=== PATIENT | female | born 1990 | race Caucasian/White ===

== ENCOUNTER → 2019-02-20 13:24 | Outpatient (CLI) | payer OTHER, SELFPAY ==
[2019-02-26 13:43] LABS: AFP, Serum 43.8 ng/mL; Calc Gestational Age 18.7; Cigarette Smoker NOT GIVEN; Donated Egg N; Donor Egg Age NOT GIVEN; Inhibin A, Dimeric 163 pg/mL; Maternal Weight 193 lbs; Number of Fetuses NOT GIVEN; Previous Pregnancy Down Syndro N; hCG, MoM 0.53; hCG, Serum 10.2 IU/mL
== END ==
PROVIDERS: PCP Nurse Practitioner Family; Visit Provider Family Medicine
DX: Z34.82 Encounter for supervision of other normal pregnancy, second trimester (principal); Z3A.16 16 weeks gestation of pregnancy
CPT/HCPCS: 36415; 82105; 82677; 84702; 86336

== ENCOUNTER → 2019-03-16 07:48 | Outpatient (CLI) | payer OTHER, SELFPAY ==
--- NOTE | 2019-03-16 07:50 | DI.US.S_ITS ---
PROCEDURE: US OB >= 14 WEEKS FETUS INDICATIONS: anatomy screening OUTSIDE/PRIOR DATING DATA: Last menstrual period (LMP): 10/12/18. LMP-based estimated date of delivery (MAUREEN): 07/19/19. First dating scan (date and location): 03/16/19. Estimated date of delivery (MAUREEN) from first dating scan: 07/20/19. TECHNIQUE: Real-time scanning was performed of the fetus, with image documentation and biometric measurements. Endovaginal scanning: Deferred COMPARISON: None. FINDINGS: General: A single living intrauterine gestation is present. Presentation: Vertex. Placenta: Placental position is posterior, without previa. Amniotic fluid index: 11.3 cm, normal range is 5-24 cm. heart rate: 152 beats per minute. Maternal cervical canal: 3.6 cm long. Normal lower limit is 2.5 cm. biometrics: Biparietal diameter: 5.3 cm, 22 weeks, zero days plus or -12 days Head circumference: 19.6 cm, 21 weeks, 5 days plus or -10 days Abdominal circumference: 18.2 cm, 23 weeks zero days plus or -14 days Femur length: 3.7 cm, 21 weeks, 5 days plus -13 days Estimated gestational age from initial scan: not applicable. Composite gestational age from present scan: 22 weeks, zero days Estimated weight and percentile: 500 g plus -74 g, 57th percentile Measurement variability for biometric dating: +/- 7 days from 14 weeks to 15 weeks 6 days gestation, +/- 10 days from 16 weeks to 21 weeks 6 days gestation, +/- 2 weeks from 22 weeks to 27 weeks 6 days gestation, +/- 3 weeks for 28 weeks gestation or later. weight reference: 4500 g or EFW >90/95% is considered macrosomia or large for gestational age. EFW <10% is small for gestational age. EFW 5% or less is considered intra-uterine growth restriction. Anatomic survey: Neuro: Ventricles are non-dilated at less than 10 mm. Cisterna magna is normal at 3-11 mm. Cerebellum is normal in size and morphology. Nuchal skin fold: Normal at less than 6 mm between 14-21 weeks gestational age. Face: Nose and lips, facial profile are normal. Spine: No evidence for spina bifida. Heart: 4-chambered heart is present, with normal ventricular outflow tracts. Diaphragm: Diaphragm is intact. Stomach: Left-sided stomach is present. Kidneys: No hydronephrosis. Normal is less than 5 mm in 2nd trimester, less than 7 mm in 3rd trimester. Cord: 3-vessel cord has orthotopic insertion. Bladder: Normal in size. Extremities: All 4 extremities identified. IMPRESSION: 1. Single living intrauterine with a composite gestational age by today's measurements of 22 weeks, zero days, in good agreement with the clinically assigned gestational age. 2. Symmetric growth and normal anatomy. Dictated by: Melissa Yu M.D. on 03/16/2019 at 9:55 Approved by: Melissa Yu M.D. on 03/16/2019 at 10:01
== END ==
PROVIDERS: PCP Nurse Practitioner Family; Visit Provider Family Medicine
DX: Z36.89 Encounter for other specified antenatal screening (principal); Z3A.22 22 weeks gestation of pregnancy
CPT/HCPCS: 76811

== ENCOUNTER → 2019-04-25 08:17 | Outpatient (CLI) | payer OTHER, SELFPAY ==
[2019-04-25 10:37] LABS: Hematocrit 31.7 % (36-46); Hemoglobin 10.9 g/dL (12.0-16.0)
[2019-04-25 11:00] LABS: GTT (PREG) 1 Hour PP 50gm Dose 153 mg/dL (76-139)
== END ==
PROVIDERS: PCP Nurse Practitioner Family; Visit Provider Family Medicine
DX: Z34.02 Encounter for supervision of normal first pregnancy, second trimester (principal); Z3A.26 26 weeks gestation of pregnancy
CPT/HCPCS: 82950; 85014; 85018

== ENCOUNTER → 2019-04-30 07:51 | Outpatient (CLI) | payer OTHER, SELFPAY ==
[2019-04-30 10:11] LABS: Glucose Fasting Gestational 84 mg/dL (76-95)
[2019-04-30 10:43] LABS: Glucose 1 Hour Gest 179 mg/dL (76-180)
[2019-04-30 11:10] LABS: Glucose Tol Interp,Gestational INTERPRETATION
[2019-04-30 11:22] LABS: Glucose 2 Hour Gest 158 mg/dL (76-155)
[2019-04-30 12:33] LABS: Glucose 3 Hour Gest 138 mg/dL (76-140)
== END ==
PROVIDERS: PCP Nurse Practitioner Family; Visit Provider Family Medicine
DX: Z34.90 Encounter for supervision of normal pregnancy, unspecified, unspecified trimester (principal); R73.01 Impaired fasting glucose
CPT/HCPCS: 36415; 82951; 82952

== ENCOUNTER → 2019-06-26 11:08 | Outpatient (CLI) | payer OTHER, SELFPAY ==
[2019-06-27 10:04] LABS: Strep Grp B PCR NEG for Grp B Strep
== END ==
PROVIDERS: PCP Nurse Practitioner Family; Visit Provider Family Medicine
DX: Z3A.36 36 weeks gestation of pregnancy (principal)
CPT/HCPCS: 87653

== ENCOUNTER → 2019-06-29 08:58 | Outpatient (CLI) | payer OTHER, SELFPAY ==
--- NOTE | 2019-06-29 09:00 | DI.US.S_ITS ---
PROCEDURE: US OB LIMITED INDICATIONS: LARGE FOR GESTATIONAL AGE OUTSIDE/PRIOR DATING DATA: Last menstrual period (LMP): 10/12/18. LMP-based estimated date of delivery (MAUREEN): 07/19/19. First dating scan (date and location): 03/16/19. Estimated date of delivery (MAUREEN) from first dating scan: 07/20/19.. TECHNIQUE: Real-time scanning was performed of the fetus, with image documentation and biometric measurements. Endovaginal scanning: Vertex COMPARISON: [facility], OB >= 14 WEEKS FETUS, 03/16/2019, 8:10. FINDINGS: General: A single living intrauterine gestation is present. Presentation: Vertex. Placenta: Placental position is posterior Amniotic fluid index: 21.9 cm, normal range is 5-24 cm. heart rate: 149 beats per minute. Maternal cervical canal: Not well-seen. biometrics: Biparietal diameter: 36 weeks 4 days Head circumference: 37 weeks 2 days Abdominal circumference: 39 weeks 4 days Femur length: 36 weeks Estimated gestational age from initial scan: 37 weeks Composite gestational age from present scan: 37 weeks 3 days Estimated weight and percentile: 3406 g; 84 percentile Measurement variability for biometric dating: +/- 7 days from 14 weeks to 15 weeks 6 days gestation, +/- 10 days from 16 weeks to 21 weeks 6 days gestation, +/- 2 weeks from 22 weeks to 27 weeks 6 days gestation, +/- 3 weeks for 28 weeks gestation or later. weight reference: 4500 g or EFW >90/95% is considered macrosomia or large for gestational age. EFW <10% is small for gestational age. EFW 5% or less is considered intra-uterine growth restriction. Other: Not applicable. IMPRESSION: 1. Single living IUP redemonstrated and interval growth is normal. Dictated by: Jhon Bess [facility] Interpreted: Mj Ruby MD on 06/29/2019 at 10:38 Approved by: Mj Ruby M.D. on 06/29/2019 at 15:10
== END ==
PROVIDERS: PCP Nurse Practitioner Family; Visit Provider Family Medicine
DX: O36.63X0 Maternal care for excessive fetal growth, third trimester, not applicable or unspecified (principal); Z3A.37 37 weeks gestation of pregnancy
CPT/HCPCS: 76815

== ENCOUNTER → 2019-07-21 10:15 | Outpatient (CLI) | payer OTHER, SELFPAY ==
--- NOTE | 2019-07-21 10:17 | DI.US.S_ITS ---
PROCEDURE: US OB LIMITED INDICATIONS: GROWTH, MICKEY OUTSIDE/PRIOR DATING DATA: Last menstrual period (LMP): 10/12/18. LMP-based estimated date of delivery (MAUREEN): 07/19/19. First dating scan (date and location): 03/16/19. Estimated date of delivery (MAUREEN) from first dating scan: 07/20/19.. TECHNIQUE: Real-time scanning was performed of the fetus, with image documentation and biometric measurements. Endovaginal scanning: No COMPARISON: [facility], OB LIMITED, 06/29/2019, 9:35. FINDINGS: General: A single living intrauterine gestation is present. Presentation: Vertex. Placenta: Placental position is posterior, without previa. Amniotic fluid index: 11.2 cm, normal range is 5-24 cm. heart rate: 155 beats per minute. Maternal cervical canal: Not well-seen. biometrics: Biparietal diameter: 39 weeks 4 days Head circumference: 40 weeks 1 day Abdominal circumference: 40 weeks 5 days Femur length: 38 weeks 6 days Estimated gestational age from initial scan: 40 weeks 1 day Composite gestational age from present scan: 39 weeks 5 days Estimated weight and percentile: 3991 g; 77% of Measurement variability for biometric dating: +/- 7 days from 14 weeks to 15 weeks 6 days gestation, +/- 10 days from 16 weeks to 21 weeks 6 days gestation, +/- 2 weeks from 22 weeks to 27 weeks 6 days gestation, +/- 3 weeks for 28 weeks gestation or later. weight reference: 4500 g or EFW >90/95% is considered macrosomia or large for gestational age. EFW <10% is small for gestational age. EFW 5% or less is considered intra-uterine growth restriction. Other: Bilateral hydroceles noted. IMPRESSION: Single living IUP redemonstrated and interval growth is normal. Dictated by: John Bess [facility] Interpreted: Peggy Obrien MD on 07/21/2019 at 16:07 Approved by: Peggy Obrien M.D. on 07/21/2019 at 16:17
== END ==
PROVIDERS: PCP Nurse Practitioner Family; Visit Provider Family Medicine
DX: O36.63X0 Maternal care for excessive fetal growth, third trimester, not applicable or unspecified (principal); Z3A.39 39 weeks gestation of pregnancy
CPT/HCPCS: 76815

== ENCOUNTER 2019-07-23 18:05 | Inpatient (IN) | payer OTHER, SELFPAY ==
[2019-07-23] MEDS: DINOPROSTONE VAG (CERVIDIL) 10 MG VAG (19:30)
[2019-07-23 20:10] VITALS: BP 130/79
[2019-07-23 20:55] LABS: Add Manual Diff / Slide Review NO; Basophils Absolute Auto 0 /uL (0-100); Basophils Percent Auto 0.4 % (0-2); Eosinophils Absolute Auto 0 /uL (0-450); Eosinophils Percent Auto 0.5 % (2-4); Hematocrit 33.7 % (36-46); Hemoglobin 11.2 g/dL (12.0-16.0); Lymphocytes Absolute Auto 2200 /uL (1100-4500); Lymphocytes Percent Auto 24.1 % (25-40); Mean Corpuscular HGB Conc 33.3 % (30-36); Mean Corpuscular Hemoglobin 29.2 PG (26-34); Mean Corpuscular Volume 87.6 fL (80-100); Monocytes Absolute Auto 1300 /uL (0-900); Monocytes Percent Auto 14.4 % (3-14); Neutrophils Absolute Auto 5600 /uL (1500-7000); Neutrophils Percent Auto 60.6 % (50-75); Platelet Count 137 X10^3/uL (150-400); Red Blood Cell Count 3.85 X10^6/uL (4.0-5.2); Red Cell Distribution Width 14.2 % (11.6-14.8); White Blood Cell Count 9.2 X10^3/uL (4.5-11.0)
[2019-07-23] MEDS: ZOLPIDEM 5 MG TABLET PO (21:10)
[2019-07-24] MEDS: OXYTOCIN PREMIX 30 UNIT/500 ML PLAST..BAG IV (06:30)
[2019-07-24] MEDS: LACTATED RINGERS 1,000 ML 100 ML IV ×5 (06:30→23:10)
--- NOTE | 2019-07-24 06:44 | PM.OBHP.1 ---
OB HPI Date/Time Date of admission: 07/24/19 Date Patient Seen: 07/24/19 Time Patient Seen: 07:02 History of Present Condition Chief complaint: Obs : 1 Para: 0 Estimated Date of Delivery: 07/19/19 Estimated Gestational Age (weeks): 40w5d Narrative: Ana Maria Rao is a 28 year old with MAUREEN of 07/19/19. has been uncomplicated. She did not pass the 1 hour GTT however passed the 3 hour and has been watching her weight gain the rest of the . Last US on 07/21/19 gave EFW of 3991 g (77%). She came in last night for Cervidil ripening. Cervidil fell out at 5:20 AM and pitocin started at 6:20 AM. SVE reportedly 3/-2 and patient was very sensitive on exam. Indications Indication for induction OB: post dates History of Present care: good care, initiated at week # (15), number of visits (13) and pounds weight gain (36) Dating criteria: LMP confirmed by 1st trimester US Ultrasounds: normal mid trimester US Obstetrical complications: none Medical complications: none Preadmission Labs Blood type: A (+) positive -: Antibody screen: negative, GBS status: negative, HBsAG: negative, HIV: negative and RPR/VDLR: negative -: Chlamydia screen: not detected and Gonorrhea screen: not detected -: Rubella: immune HCT: 38.6 PAP: Abnormal (ASCUS +HPV, neg colpo) Quad screen: Normal 1 hr GTT: 153 3 hr GTT: 1 hr (179), 2 hr (158) and 3 hr (138) Fasting blood glucose: 84 Evaluation Evaluation Baseline heart rate: 130 Variability: Moderate (11-25) monitor accelerations: Present monitor decelerations: Variable (one variable) Uterine Contraction Intensity: Mild Category of Tracing: II Cervical dilation (cm): 3 Cervical effacement (%): 90 station: -2 Laboratory results: Laboratory Tests 07/23/19 07/23/19 20:40 20:40 WBC 9.2 RBC 3.85 L Hgb 11.2 L Hct 33.7 L MCV 87.6 MCH 29.2 MCHC 33.3 RDW 14.2 Plt Count 137 L Neut % (Auto) 60.6 Lymph % (Auto) 24.1 L Fergus % (Auto) 14.4 H Eos % (Auto) 0.5 L Baso % (Auto) 0.4 Neut # (Auto) 5600 Lymph # (Auto) 2200 Fergus # (Auto) 1300 H Eos # (Auto) 0 Baso # (Auto) 0 Blood Type A Positive Antibody Screen Negative [facility] Medical History Abnormal Pap smear of cervix (Resolved) Anxiety and depression (Chronic) Seasonal allergies (Chronic) Social History marital status: 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[employer]) Smoking Status: Never smoker alcohol intake: former (pre-) substance use type: does not use Social History marital status: occupational status: employed ([employer]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[employer]) Smoking Status: Never smoker alcohol intake: former (pre-) substance use type: does not use Meds Home Medications and Allergies Home Medications Medication Instructions Recorded Confirmed Type acetaminophen 325 mg tablet 325 mg PO Q6H PRN 01/26/19 01/26/19 History prenat.vits,edgard,[id number] 1 tab PO DAILY 01/26/19 01/26/19 History Allergies Allergy/AdvReac Type Severity Reaction Status Date / Time Penicillins [PENICILLINS] Allergy Unknown Verified 07/24/19 07:33 MELONS Allergy Mild Uncoded 07/24/19 07:34 LAVENDAR Allergy Unknown Uncoded 07/24/19 07:34 Review of Systems Constitutional Constitutional: Denies fatigue, Denies fever(s) and Denies headache(s) ENT Ears, Nose, Mouth, and Throat: No headache(s) Cardiovascular Cardiovascular: Denies leg swelling Respiratory Respiratory: Denies cough Gastrointestinal Gastrointestinal: Denies change in bowel habits Neurologic Neurologic: Denies headache(s) Endocrine Endocrine: Denies fatigue Exam Vital Signs (past 8 hours): T 36.6 BP 136/66 P 50 Const General: healthy appearing and comfortable [facility] Head: normal to inspection Ears: hearing grossly normal bilaterally Nose: external nose normal Face and sinus: normal facial exam Mouth: oral mucosae normal Eyes General: appearance normal, both eyes and all related structures Neck Neck: normal visual inspection Resp Effort & Inspection: normal respiratory effort Auscultation: clear to auscultation bilaterally Cardio Rate: regular rate Rhythm: regular rhythm Heart Sounds: no murmurs GI Other: Gravid Presentation: vertex Estimated Weight (lbs): 9 Back/Spine/Pelvis Back: normal to inspection Skin General: no rashes or lesions noted Extrem General: normal to inspection and no pedal edema Objective Labs Result Diagrams: 07/23/19 20:40 Labs: Laboratory Results - last 24 hr 07/23/19 07/23/19 20:40 20:40 WBC 9.2 RBC 3.85 L Hgb 11.2 L Hct 33.7 L MCV 87.6 MCH 29.2 MCHC 33.3 RDW 14.2 Plt Count 137 L Neut % (Auto) 60.6 Lymph % (Auto) 24.1 L Fergus % (Auto) 14.4 H Eos % (Auto) 0.5 L Baso % (Auto) 0.4 Neut # (Auto) 5600 Lymph # (Auto) 2200 Fergus # (Auto) 1300 H Eos # (Auto) 0 Baso # (Auto) 0 Blood Type A Positive Antibody Screen Negative Assessment and Plan Assessment and Plan Assessment and Plan narrative: 28 year old at 40 weeks 5 days here for postdates induction. GBS negative. Received Cervidil overnight. SVE this morning, Ng score of 10. EFW 8-9 lbs. Plan - Pitocin per protocol - Nitrous oxide, epidural when desired
--- NOTE | 2019-07-24 13:03 | PM.OBPNLAB ---
Date/Time Date Patient Seen: 07/24/19 Time Patient Seen: 12:45 Pain Control Pain control: tolerating well Comments: Rates pain as 6/10, light bad period cramps. Using nitrous with some relief. Pelvic Exam Dilation (cm): 3 Effacement (%): 100 station: -2 Amniotic membrane status: Ruptured (Thin meconium) Contractions Monitor mode: External Pitocin rate (mU/min): 15 Contraction frequency (min): 4 Contraction pattern: Irregular Contraction intensity: Moderate Status status: Category l Heart Rate Baseline: 140 Monitor Accelerations: Present Monitor Decelerations: Absent Monitor Variability: Moderate Assessment and Plan Assessment: induction ongoing Plan: continuous present management Comments: SVE with minimal change form this morning. AROM with thin meconium. Continue pitocin, titrate to contractions every 2-3 min. Patient has not yet achieved a regular contraction pattern yet.
--- NOTE | 2019-07-24 17:06 | PM.OBPNLAB ---
Date/Time Date Patient Seen: 07/24/19 Time Patient Seen: 17:06 Pain Control Pain control: tolerating well and epidural Comments: Feeling intermittent pressure. Comfortable with epidural. Pelvic Exam Dilation (cm): 8 Effacement (%): 100 station: -1 Amniotic membrane status: Ruptured (Thin meconium) Contractions Monitor mode: External Pitocin rate (mU/min): 15 Contraction frequency (min): 2 Contraction pattern: Regular Contraction intensity: Strong/Firm Status status: Category ll Heart Rate Baseline: 140 Monitor Accelerations: Present Monitor Decelerations: Variable (intermittent) Monitor Variability: Moderate Assessment and Plan Assessment: active labor and induction ongoing Plan: continuous present management
--- NOTE | 2019-07-24 20:29 | PM.OBPNLAB ---
Date/Time Date Patient Seen: 07/24/19 Time Patient Seen: 20:15 Pain Control Pain control: tolerating well and epidural Pelvic Exam Dilation (cm): 8 Effacement (%): 100 station: -1 Amniotic membrane status: Ruptured (Thin meconium) Contractions Monitor mode: External Pitocin rate (mU/min): 18 Contraction frequency (min): 2 Contraction pattern: Regular Contraction intensity: Strong/Firm Status status: Category l Heart Rate Baseline: 140 Monitor Accelerations: Present Monitor Decelerations: Variable Monitor Variability: Moderate Assessment and Plan Assessment: induction ongoing Comments: Patient with variable cervical exams. SVE 8/100/-1 at 4:30 PM, supposedly 9.5/100/-1 at 6:30 PM however my exam 8/100/-1 now with caput developing. IUPC placed to determine adequacy of contractions.
--- NOTE | 2019-07-24 21:16 | PM.OBPNLAB ---
Date/Time Date Patient Seen: 07/24/19 Time Patient Seen: 21:16 Pain Control Pain control: tolerating well and epidural Pelvic Exam Dilation (cm): 8 Effacement (%): 100 station: -1 Amniotic membrane status: Ruptured (Thin meconium) Contractions Monitor mode: External Contraction frequency (min): 3 Contraction pattern: Irregular Contraction intensity: Mild Status status: Category l Heart Rate Baseline: 140 Monitor Accelerations: Present Monitor Decelerations: Absent (mild, resolved) Monitor Variability: Moderate Assessment and Plan Assessment: other Comments: Patient with frequent but inadequate contractions after one hour. Suspect uterine receptors are saturated and pitocin is not effective. Patient would greatly like to avoid a if at all possible. Patient is GBS negative, afebrile and baby is not stressed. Will take a break from pitocin for a few hours then restart pitocin and titrate adequate contractions. Patient is aware of the chance of if she cannot progress despite adequate contractions or if we are unable to achieve adequate contractions.
--- NOTE | 2019-07-25 06:44 | PM.OBPNLAB ---
Date/Time Date Patient Seen: 07/25/19 Time Patient Seen: 06:30 Pain Control Pain control: tolerating well and epidural Comments: Was having severe pain with contractions until epidural was rebolused. Much better now. Pelvic Exam Dilation (cm): 8 Effacement (%): 100 station: 0 Amniotic membrane status: Ruptured (Thin meconium) Contractions Monitor mode: External Contraction frequency (min): 4 Contraction pattern: Regular Contraction intensity: Mild Status status: Category l Heart Rate Baseline: 135 Monitor Accelerations: Present Monitor Decelerations: Absent Monitor Variability: Moderate Assessment and Plan Plan: Comments: Patient was given a break from pitocin for receptors to reset. Pitocin restarted at midnight however was shut off due to other events in the center that took priority. Pitocin was restarted however patient very painful and needing her epidural bolused and the pitocin again turned off. FHT have remained reassuring and patient afebrile however we have not made significant change all night (not surprising given lack of consistent use of pitocin). Patient is exhausted. Risks and benefits of primary reviewed with patient and , specifically risk of bleeding, infection and injury to surrounding organs (bladder, bowel, ureters). All questions answered. Will give Ancef 2 g prior to surgery. Patient has a penicillin allergy listed due to severe reaction in her mother. She has never had penicillin but states she has tolerated amoxicillin.
--- NOTE | 2019-07-25 06:56 | PM.PREOP ---
Pre-operative Note Interval Note History & Physical reviewed/Exam performed by Physician: Yes Changes to H&P: No
[2019-07-25] MEDS: CEFAZOLIN 2 GM/100 ML FROZ.PIGGY IV (08:10)
--- NOTE | 2019-07-25 08:25 | SUR.OPER ---
Supine on Padded OR bed, head on pillow, safety belt at thigh, arms secured on padded arm boards at <90 degrees abduction. Bump under right buttock. Legs uncrossed with pillow under knees, gel pad to heels, tape over blanket to lower legs.
--- NOTE | 2019-07-25 08:33 | SUR.OPER ---
Viable male born at 08:31. Cord blood tubes x2 and placenta sent with L&D RN.
[2019-07-25 09:22] VITALS: BP 99/58; PULSE 67; RESP 18; TEMP 36.7; O2SAT 95
[2019-07-25 09:27] VITALS: BP 106/59; PULSE 60; RESP 16; O2SAT 95
[2019-07-25] MEDS: MEPERIDINE 50 MG/ML INJ 25 MG IV (09:27)
--- NOTE | 2019-07-25 09:31 | P.OP_ITS ---
Operative Date/Time/Diagnoses Date of procedure: 07/25/19 Time of procedure: 08:30 Pre-op diagnosis: Failure to progress 40 weeks of Post-op diagnosis: same Procedure & Clinicians Procedure: Primary low-transverse section Same procedure as scheduled: Yes Indications: 40 weeks of Failure to progress Surgeon: Sapna Still Senior Sustainability Consultant: Cj Kwon Anesthesia Type: Spinal Operative Notes Findings: Vigorous male , normal tubes, uterus and ovaries Closure Type: primary Applied: catheter Estimated Blood Loss (mL): 700 Blood products transfused: none Procedure in detail: The patient was taken to the operating room where she was placed in the seated position. Epidural anesthesia was found to be inadequate so spinal anesthesia was administered. She was then placed in the dorsal supine position with a leftward tilt. She was prepped and draped in the usual sterile fashion. A timeout was performed. After spinal analgesia was found to be adequate, a Pfannenstiel skin incision was made 2 fingerbreadths above the pubic symphysis and carried through to the underlying layer fascia. The fascia was nicked in the midline and the incision extended bilaterally with Reynaga scissors. The superior aspect of the fascial incision was grasped with a Dilma clamps, elevated, and the underlying rectus muscles dissected off sharply and bluntly. Attention was then turned to the inferior aspect of this incision which in a similar fashion was grasped with a Dilma clamps, elevated, and the underlying rectus muscles dissected off sharply and bluntly. The rectus muscles were in the midline. The peritoneum was identified, grasped between 2 hemostats, and entered sharply with the Metzenbaum scissors. This incision was extended superiorly and inferiorly with good visualization of the bladder. The bladder blade was inserted. The vesicouterine peritoneum was identified, grasped with the pickup, and entered sharply with the Metzenbaum scissors. This incision was extended bilaterally, and the bladder flap was created digitally. The bladder blade was reinserted. The lower uterine segment was incised in a transverse fashion with the scalpel. Upon entering the amniotic sac there was a small amount thin meconium stained amniotic fluid. The 's head was delivered. The remainder of the body delivered without difficulty. The cord was double clamped and cut. The was handed off to waiting RN and RT. The placenta was delivered manually. The uterus was cleared of all clots and debris. The uterine incision was repaired with #1 chromic in a running interlocking fashion and a second layer the same suture was used for an imbricating layer. Hemostasis was achieved. The tubes and ovaries were examined and were found to be normal. The gutters were cleared of all clots and debris. The bladder flap was reapproximated using 2-0 chromic in a running fashion. The parietal peritoneum was closed using 2-0 chromic in a running fashion. The fascia was reapproximated using #1 Vicryl in a running fashion. Subcutaneous layer was copiously irrigated with warm normal saline. 3 simple interrupted sutures of 3-0 Vicryl were placed to reapproximate the subcutaneous layer. The skin was closed with 4-0 undyed Vicryl in a subcuticular fashion. Steri-Strips were placed. An Aquacel dressing was placed. The uterus was expressed of a small amount of old blood. Sponge, lap, and instrument counts were correct. The patient tolerated the procedure well, and was taken to PACU in stable condition. Complications: none Post-operative Condition: stable Disposition: PACU
[2019-07-25 09:32] VITALS: BP 110/72; PULSE 64; RESP 12; O2SAT 99
[2019-07-25 09:37] VITALS: BP 99/59; PULSE 56; RESP 12; O2SAT 96
--- NOTE | 2019-07-25 09:40 | SUR.PHASEI ---
Tremors resolved after Demerol. Pt moving arms independently.
[2019-07-25 09:47] VITALS: BP 109/65; PULSE 53; RESP 16; O2SAT 97
--- NOTE | 2019-07-25 09:47 | SUR.PHASEI ---
Report called to Melissa
[2019-07-25 09:48] VITALS: TEMP 36.1
--- NOTE | 2019-07-25 10:08 | SUR.PHASEI ---
Pt transferred to the center. Report to Melissa. BP stable. Fundus and bleeding checked with RN. Scant amt of shadow drainage to abd drsg, small amt of bloody flow. IV patent, positional. Spinal level t4, arm numbness almost completely resolved. Osei patent with small amt of dark yellow urine.
--- NOTE | 2019-07-25 10:10 | SUR.PHASEI ---
approx 100mls left in IV bag containing pitocin
[2019-07-25] MEDS: LACTATED RINGERS 1,000 ML 100 ML IV (10:44)
[2019-07-25] MEDS: KETOROLAC 30 MG/ML VIAL IV ×3 (10:45→22:48)
[2019-07-26] MEDS: KETOROLAC 30 MG/ML VIAL IV (04:51)
[2019-07-26 06:11] LABS: Hemoglobin 8.2 g/dL (12.0-16.0)
[2019-07-26 08:47] VITALS: TEMP 36.1
[2019-07-26] MEDS: OXYCODONE IR 5 MG TABLET PO ×4 (08:47→22:04)
[2019-07-26] MEDS: LANOLIN OINT 7 GM 1 APPLIC TOP (08:48)
--- NOTE | 2019-07-26 09:09 | P.PNOB_ITS ---
Subjective - OB Subjective Patient comments: no complaints, pain well controlled, incisional pain, tolerating diet and flatus present feeding status: exclusively breast feeding Date Patient Seen: 07/26/19 Time Patient Seen: 08:30 Interval history: Patient has no new concerns this morning. Her catheter was re moved a to hours ago. She is not yet voided but is passing flatus. Denies dizziness or lightheadedness upon standing. Pain is well controlled Toradol. She has yet to use any opiate pain medication. Bleeding is reportedly light. She is but having some pain with breast-feeding. is doing very well. Exam Vital Signs (past 8 hours): - 07/26/19 08:47 Temperature 97.0 F L Oxygen Delivery Method Room Air Narrative Exam Narrative: Temperature 36.1? blood pressure 109/57 heart rate 87 General: Awake and alert, no acute distress. HEENT: NCAT, EOMI, moist oral mucosa CV: Regular rate and rhythm, no murmurs, rubs or gallops Lungs: CTAB, no wheezes, rales, or rhonchi Abdomen: Aquacel dressing intact minimal dried drainage. Soft, nontender; bowel tones active; uterus firm 1 cm below umbilicus. Extremities: Warm, 1+ edema bilaterally Objective Labs Result Diagrams: 07/26/19 05:35 Labs: Laboratory Results - last 24 hr 07/26/19 05:35 Hgb 8.2 L Hct 25.0 L Assessment & Plan Assessment and Plan (1) 40 weeks gestation of : Status: Acute Current Visit: Yes (2) Status post : Status: Acute Current Visit: Yes (3) Failure to progress in first stage of labor: Status: Acute Current Visit: Yes (4) Acute blood loss anemia: Status: Acute Current Visit: Yes Plan day: 1 plan OB: routine postop care Comments: 28-year-old postop day 1 after primary for failure to progress in the first stage of labor. Infant was ROP and nearly 10 lb. She is doing very well today. She is anemic secondary to blood loss during surgery however bleeding is currently light. Will supplement with iron. No indication for transfusion. Anticipate discharge home tomorrow. Continue routine postop care and support. Time Spent With Patient Time: Total time spent is greater than 50% in coordination of care (as documented) at patient's floor/unit and/or counseling patient: Time with patient: less than 15 minutes
[2019-07-26] MEDS: IBUPROFEN 600 MG TABLET PO ×3 (10:54→23:56)
[2019-07-26] MEDS: PRENATAL VIT,CALC/IRON/FOLIC 1 TABLET 1 TAB PO (10:55)
[2019-07-26] MEDS: FERROUS GLUCONATE 324 MG TABLET PO (10:55)
[2019-07-26] MEDS: DOCUSATE 250 MG CAPSULE PO (10:55)
[2019-07-27] MEDS: OXYCODONE IR 5 MG TABLET PO ×3 (02:00→10:35)
[2019-07-27] MEDS: IBUPROFEN 600 MG TABLET PO ×2 (06:36→14:10)
--- NOTE | 2019-07-27 08:13 | P.DS_ITS ---
History of Present Illness History of Present Illness Chief complaint: LABOR & DELIVERY Discharge Providers Provider Date of admission: 07/23/19 18:05 Discharge Date: 07/27/19 Primary care physician: KATINA Jensen Consults: 07/25/19 09:08 Consult to Physical Therapy Evaluate & Treat Comment: Begin therapy on first postop day as tolerated. Physician Instructions: Evaluate and Treat 07/25/19 09:52 Consult to Bulk Saus[employer] C[employer] Tier Off Routine Comment: Discharge provider: Flo Acevedo MD Summary Hospital Course Discharge Diagnosis: Primary for large gestational age infant with failure to progress Routine care Hospital Course: Patient was admitted to the hospital for induction of labor. Labor induction after 36 hours showed failure to progress. Patient was taken for . Has delivery of viable male infant large for gestational age. Mom had routine care day 1 Osei catheter is removed. Taking oral pain medication and eating. Day 2. Ambulating. Positive urination no bowel movements. Patient has some difficulty with breast-feeding due to pain. Had normal hemoglobin hematocrit. Tolerating oral pain medication. And requesting to go home. Exam Vital Signs (past 8 hours): Oxygen Delivery Method Room Air Narrative Exam Narrative: General: Alert no apparent distress. Affect is appropriate. Valeriano it is uncomfortable. HEENT: Neck is supple without lymphadenopathy pupils equal round and reactive. Cardio: S1-S2 regular rate and rhythm. Respiratory: Lungs clear to auscultation. Abdomen: Uterus firm. Incision clean dry and intact. Extremities: Normal deep tendon reflexes trace edema. Objective Labs Result Diagrams: 07/26/19 05:35 Discharge Plan Discharge Plan Patient Disposition: Home Discharge Med Rec/Prescriptions Prescriptions: New ibuprofen 600 mg Tablet 600 mg PO Q6HR PRN (Reason: As Needed For Fever/Mild Pain) Qty: 30 RF: 0 docusate sodium 250 mg Capsule 250 mg PO DAILY Qty: 30 RF: 0 oxycodone 5 mg Tablet 5 mg PO Q4HR PRN (Reason: Pain, Moderate (4-6)) Qty: 30 RF: 0 Continued prenat.vits,edgard,gty-pagx-oemfi tablet 1 tab PO DAILY RF: 0 acetaminophen [Tylenol] 325 mg tablet 325 mg PO Q6H PRN (Reason: Pain, Mild) RF: 0 Follow up/Referrals: Janet Jacobs ARNP [Primary Care Provider] - Visit Report/Discharge Packet Visit Report Forms: Stroke Signs & Symptoms Discharge Data Primary Care Provider: Janet Jacobs
[2019-07-27 10:18] VITALS: BP 109/65; PULSE 53; RESP 16; TEMP 36.1
[2019-07-27] MEDS: DOCUSATE 250 MG CAPSULE PO (10:34)
[2019-07-27] MEDS: FERROUS GLUCONATE 324 MG TABLET PO (10:34)
[2019-07-27] MEDS: PRENATAL VIT,CALC/IRON/FOLIC 1 TABLET 1 TAB PO (10:35)
== END 2019-07-27 15:52 | disposition home or self-care (01) | DRG 787 ==
PROVIDERS: Admitting Provider Family Medicine; PCP Nurse Practitioner Family; Visit Provider Family Medicine
PROC: 10D00Z1 Extraction of Products of Conception, Low, Open Approach (ICD-10-PCS; CPT 59514; principal; 2019-07-25 07:35)
DX: O48.0 Post-term pregnancy (principal); D62 Acute posthemorrhagic anemia; Z3A.40 40 weeks gestation of pregnancy; Z37.0 Single live birth; O62.1 Secondary uterine inertia; O77.0 Labor and delivery complicated by meconium in amniotic fluid; O61.0 Failed medical induction of labor
CPT/HCPCS: 01967; 01968; 36415; 59050; 59200; 59510; 59514; 85014; 85018; 85025; 86850; 86900; 86901; G0379; J0690; J1885; J2175; J2274; J2590

== ENCOUNTER → 2019-11-15 09:39 | Outpatient (CLI) | payer OTHER, SELFPAY ==
[2019-11-15 10:28] LABS: Influenza A - CEPHEID Flu A NEGATIVE (NEGATIVE); Influenza B - CEPHEID Flu B POSITIVE (NEGATIVE)
== END ==
PROVIDERS: PCP Nurse Practitioner Family; Visit Provider Physician Assistant
DX: R68.89 Other general symptoms and signs (principal)
CPT/HCPCS: 87502

== ENCOUNTER → 2020-06-13 12:37 | Outpatient (CLI) | payer OTHER, SELFPAY ==
--- NOTE | 2020-06-13 12:39 | DI.US.S_ITS ---
PROCEDURE: US OB <= 14 WEEKS FETUS INDICATIONS: DATING OUTSIDE/PRIOR DATING DATA: Last menstrual period (LMP): 04/23/20 . LMP-based estimated date of delivery (MAUREEN): 01/28/21 . First dating scan (date and location): 06/13/20 . Estimated date of delivery (MAUREEN) from first dating scan: 02/02/21 . TECHNIQUE: Real-time scanning was performed of the fetus and maternal pelvic organs, with image documentation. Endovaginal scanning was also performed to better visualize the fetus and maternal ovaries. COMPARISON: None. FINDINGS: Embryo: Single living intrauterine fetus is present with heart rate measuring 143 beats per minute. Boswell-rump length measures 0.72 cm, 6 weeks 4 days. There is a right corpus luteum. Left ovary unremarkable. There is Renee-gestational hemorrhage measuring 1.2 x 0.6 x 1.0 cm. Measurement variability in dating: +/- 4 weeks by LMP, +/- 7 days by mean sac diameter (use before 6 weeks gestation if crown-rump length not able to be measured), +/- 5 days by crown-rump length (up to 8 weeks 6 days gestation), +/- 7 days by crown-rump length (up to 13 weeks 6 days gestation). . Limited images through the kidneys demonstrate no hydronephrosis. IMPRESSION: Single living intrauterine fetus with a gestational age measuring 6 weeks and 4 days by today's ultrasound measurements corresponding to an MAUREEN of 02/02/21. This is concordant with the patient's reported LMP Perigestational hemorrhage Dictated by: Mj Ruby M.D. on 06/13/2020 at 14:53 Approved by: Mj Ruby M.D. on 06/13/2020 at 14:55
== END ==
PROVIDERS: PCP Nurse Practitioner Family; Referring Provider Family Medicine; Visit Provider Family Medicine
DX: Z34.91 Encounter for supervision of normal pregnancy, unspecified, first trimester (principal); Z3A.01 Less than 8 weeks gestation of pregnancy
CPT/HCPCS: 76801; 76817

== ENCOUNTER → 2020-06-17 11:09 | Outpatient (CLI) | payer OTHER, SELFPAY ==
[2020-06-17 12:16] LABS: Add Manual Diff / Slide Review NO; Basophils Absolute Auto 0 /uL (0-100); Basophils Percent Auto 0.2 % (0-2); Eosinophils Absolute Auto 100 /uL (0-450); Eosinophils Percent Auto 0.9 % (2-4); Hematocrit 37.2 % (36-46); Hemoglobin 12.3 g/dL (12.0-16.0); Lymphocytes Absolute Auto 1700 /uL (1100-4500); Lymphocytes Percent Auto 17.3 % (25-40); Mean Corpuscular Hemoglobin 30.2 PG (26-34); Mean Corpuscular Volume 91.4 fL (80-100); Monocytes Absolute Auto 900 /uL (0-900); Monocytes Percent Auto 9.5 % (3-14); Neutrophils Absolute Auto 7000 /uL (1500-7000); Neutrophils Percent Auto 72.1 % (50-75); Platelet Count 239 X10^3/uL (150-400); Red Blood Cell Count 4.08 X10^6/uL (4.0-5.2); Red Cell Distribution Width 14.4 % (11.6-14.8); White Blood Cell Count 9.7 X10^3/uL (4.5-11.0)
[2020-06-17 12:39] LABS: Hemoglobin A1C% w Est Avg Glu 5.5 % (4.0-6.0)
[2020-06-17 13:10] LABS: Appearance Urine UA CLEAR; Bilirubin Urine UA NEGATIVE (NEGATIVE); Color Urine UA YELLOW; Glucose Urine UA NEGATIVE (Negative); Ketones Urine UA NEGATIVE (NEGATIVE); Leukocyte Esterase Urine UA NEGATIVE (NEGATIVE); Nitrite Urine UA NEGATIVE (Negative); Occult Blood Urine UA NEGATIVE (Negative); Protein Urine UA TRACE (Negative); Specific Gravity Urine UA 1.015 (1.000-1.035); Urobilinogen Urine UA 0.2 E.U./dL (0.2)
[2020-06-18 04:40] LABS: RPR Screen Non Reactive (Non Reactive)
[2020-06-18 06:36] LABS: Varicella IgG Antibody 1661 index (Immune >165)
[2020-06-20 15:35] LABS: Hepatitis B Surface Antigen NEGATIVE s/c (NEGATIVE); Rubella Antibody IgG 25.8 IU/mL (>15)
[2020-06-20 15:45] LABS: HIV 1 & 2 Ab/Ag 4th Gen Combo NEGATIVE (NEGATIVE); Hep C Virus Ab w/Reflex Quant NEGATIVE s/c (NEGATIVE)
== END ==
PROVIDERS: PCP Nurse Practitioner Family; Referring Provider Family Medicine; Visit Provider Family Medicine
DX: Z34.90 Encounter for supervision of normal pregnancy, unspecified, unspecified trimester (principal)
CPT/HCPCS: 36415; 80055; 81003; 83036; 86787; 86803; 86850; 86900; 86901; 87086; 87389

== ENCOUNTER → 2020-08-26 12:00 | Outpatient (CLI) | payer OTHER, SELFPAY ==
[2020-08-29 18:34] LABS: AFP, Serum 33.9 ng/mL (.); Calc Gestational Age Ultrasound (.); Estriol, Free 2.65 ng/mL (.); Inhibin A, Dimeric 152.71 pg/mL (.); Inhibin A, MoM 1.15 (.); Maternal Ethnicity Caucasian (.); Maternal Weight 216 lbs (.); Number of Fetuses No (.); OSBR Risk 1 IN 10000 (.); Results Report (.); Test Results *Screen Negative* (.); hCG, MoM 1.27 (.); hCG, Serum 28983 mIU/mL (.)
== END ==
PROVIDERS: PCP Nurse Practitioner Family; Referring Provider Family Medicine; Visit Provider Family Medicine
DX: Z34.90 Encounter for supervision of normal pregnancy, unspecified, unspecified trimester (principal); Z3A.17 17 weeks gestation of pregnancy
CPT/HCPCS: 36415; 82105; 82677; 84702; 86336

== ENCOUNTER → 2020-09-13 09:07 | Outpatient (CLI) | payer OTHER, SELFPAY ==
--- NOTE | 2020-09-13 09:09 | DI.US.S_ITS ---
PROCEDURE: US OB >= 14 WEEKS FETUS INDICATIONS: anatomy screening OUTSIDE/PRIOR DATING DATA: Last menstrual period (LMP): 04/23/20. LMP-based estimated date of delivery (MAUREEN): 01/28/21 . First dating scan (date and location): 06/13/20 . Estimated date of delivery (MAUREEN) from first dating scan: 02/02/21 . TECHNIQUE: Real-time scanning was performed of the fetus, with image documentation and biometric measurements. Endovaginal scanning: NOT NEEDED COMPARISON: [facility], OB >= 14 WEEKS FETUS, 03/16/2019, 8:10. FINDINGS: General: A single living intrauterine gestation is present. Presentation: Variable. Placenta: Posterior. Amniotic fluid index: 14.9 heart rate: 143 Maternal cervical canal: 3.8 cm biometrics: Biparietal diameter: 4.9 cm, 20 weeks 5 days Head circumference: 17.7 cm, 20 weeks 1 day Abdominal circumference: 16.4 cm, 21 weeks 3 days Femur length: 3.4 cm, 20 weeks 4 days Estimated gestational age from initial scan: 19 weeks 5 days Composite gestational age from present scan: 20 weeks 5 days Estimated weight and percentile: 390 g, 97th percentile Measurement variability for biometric dating: +/- 7 days from 14 weeks to 15 weeks 6 days gestation, +/- 10 days from 16 weeks to 21 weeks 6 days gestation, +/- 2 weeks from 22 weeks to 27 weeks 6 days gestation, +/- 3 weeks for 28 weeks gestation or later. weight reference: 4500 g or EFW >90/95% is considered macrosomia or large for gestational age. EFW <10% is small for gestational age. EFW 5% or less is considered intra-uterine growth restriction. Anatomic survey: Neuro: Ventricles are non-dilated at less than 10 mm. Cisterna magna is normal at 3-11 mm. Cerebellum is normal in size and morphology. Nuchal skin fold: Normal at less than 6 mm between 14-21 weeks gestational age. Face: Nose and lips, facial profile are normal. Spine: No evidence for spina bifida. Heart: 4-chambered heart is present, with normal ventricular outflow tracts. Diaphragm: Diaphragm is intact. Stomach: Left-sided stomach is present. Kidneys: No hydronephrosis. Normal is less than 5 mm in 2nd trimester, less than 7 mm in 3rd trimester. Cord: 3-vessel cord has orthotopic insertion. Bladder: Normal in size. Extremities: All 4 extremities identified. IMPRESSION: The current biometry places the fetus at the upper 97th percentile in terms of weight for the current gestational age. Variability is greater at the early stages of weight estimation from biometry, but this finding is potentially worrisome and should be followed in 2 weeks to assess for persistent trending towards macrosomia. The anatomy is normal. Current positioning is variable. Dictated by: Sheldon Rodriguez M.D. on 09/13/2020 at 13:13 Approved by: Sheldon Rodriguez M.D. on 09/13/2020 at 13:42
== END ==
PROVIDERS: PCP Nurse Practitioner Family; Referring Provider Family Medicine; Visit Provider Family Medicine
DX: Z34.92 Encounter for supervision of normal pregnancy, unspecified, second trimester (principal); Z3A.20 20 weeks gestation of pregnancy
CPT/HCPCS: 76811

== ENCOUNTER → 2020-09-23 09:35 | Outpatient (CLI) | payer OTHER, SELFPAY ==
[2020-09-23 11:57] LABS: GTT (PREG) 1 Hour PP 50gm Dose 153 mg/dL (76-139)
== END ==
PROVIDERS: PCP Nurse Practitioner Family; Referring Provider Family Medicine; Visit Provider Family Medicine
DX: O36.60X0 Maternal care for excessive fetal growth, unspecified trimester, not applicable or unspecified (principal)
CPT/HCPCS: 36415; 82950

== ENCOUNTER → 2020-10-28 07:19 | Outpatient (CLI) | payer OTHER, SELFPAY ==
[2020-10-28 08:39] LABS: Glucose Fasting Gestational 86 mg/dL (76-95)
[2020-10-28 09:44] LABS: Glucose 1 Hour Gest 192 mg/dL (76-180)
[2020-10-28 10:57] LABS: Glucose Tol Interp,Gestational INTERPRETATION
[2020-10-28 11:33] LABS: Glucose 3 Hour Gest 118 mg/dL (76-140)
[2020-10-28 11:56] LABS: Glucose 2 Hour Gest 167 mg/dL (76-155)
== END ==
PROVIDERS: PCP Nurse Practitioner Family; Referring Provider Family Medicine; Visit Provider Family Medicine
DX: R73.09 Other abnormal glucose (principal); Z3A.21 21 weeks gestation of pregnancy
CPT/HCPCS: 36415; 82951; 82952

== ENCOUNTER 2020-12-06 08:02 | Outpatient (CLI) | payer OTHER, SELFPAY ==
--- NOTE | 2020-12-06 08:35 | PM.OBTRLD ---
Visit Information Visit Information Date of evaluation: 12/06/20 Primary OB Provider: Sapna Still Reason for Evaluation: Yes non-stress test non-stress test reason: diabetes Comments/Additional reasons for admission: 30 year old at 32 weeks with GDMA2, recently started on meformin, here for NST. No complaints today. Vital Signs Vital Signs: Temperature 36.0? blood pressure 119/66 heart rate 95 PFSH Medical History (Updated 12/06/20 @ 08:56 by Sapna Still DO) Abnormal Pap smear of cervix Anxiety and depression ASCUS (atypical squamous cells of undetermined significance) on gynecologic Papanicolaou smear complicating , antepartum (~07/26/18) Chicken pox (~1993) Chronic back pain (~2007) GDM, class A2 Hemorrhoid (~1999) History of recurrent ear infection (~1989) Irritable bowel syndrome (~2009) Recurrent sinusitis (~1997) Seasonal allergies Tinnitus (~2017) UTI (urinary tract infection) Surgical History Anesthesia Status post (~07/25/19) Family History Father Hypertension Hyperlipidemia Mother Hyperlipidemia Grandfather Leg length discrepancy Extra finger Grandmother Cancer History of heart disease Status post cardiac surgery Breast cancer Grandfather History of heart disease Stroke Grandmother Skin cancer Colon cancer Family/Other Stroke Family/Other History of open heart surgery Family/Other Lupus (systemic lupus erythematosus) Social History marital status: household members: significant other and children 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 Plan for twice weekly NST and weekly MICKEY. Scheduled to return in 3 days. OB Disposition: home
== END 2020-12-06 08:40 | disposition home or self-care (01) ==
LOC: LABOR 08:45 → OB 12-08 08:48
PROVIDERS: PCP Nurse Practitioner Family; Referring Provider Family Medicine; Visit Provider Family Medicine
DX: O24.415 Gestational diabetes mellitus in pregnancy, controlled by oral hypoglycemic drugs (principal); Z3A.32 32 weeks gestation of pregnancy
CPT/HCPCS: 59025; G0378; G0379

== ENCOUNTER → 2020-12-08 08:54 | Outpatient (CLI) | payer OTHER, SELFPAY ==
--- NOTE | 2020-12-08 09:50 | DIET.PN ---
INITIAL GESTATIONAL DIABETES ASSESSMENT ASSESS:? Ms. Rao is a 30 yof referred for Gestational Diabetes. She is . She has been monitoring her fasting and 1-2 hr PP glucose. She was placed on metformin 1 week ago and has been experiencing GI complications, primarily diarrhea. She has been keeping a food and glucose record. Reports readings >150 6x in the last month. ? MAUREEN:?Jan 24, 2021 ? WKS GESTATION:?? 32 wks ?LABS: fast 86, 1 hr 192, 2 hr 167, 3hr 118 ? MEDS: metformin 500mg BID ? DIET:? B: Tae latte or cereal (chex) L: soup, Josef, pizza, fruit, veggie chicken strips D: soup, pizza, frozen meals Sn: fruit, pb Take out: 1-2x/wk ? HT:? 66in ? PRE-PREG WT:? 200lb ? PRE-PREG BMI:???32.3 ? CURRENT WT: 227lb ? TOTAL WT GAIN:? 27lb EXERCISE: na NUTRITION DX 1. Altered nutrition related lab values r/t gestational diabetes as evidenced by recent labs (OGGT). INTERVENTION 1. Discussed pathophysiology of gestational diabetes and impact of hormone and nutrition/diet on blood sugar control.? Discussed fed versus non-fed state.? 2. Recommended checking fasting, pre-meal and 1hr post prandial (3x/day).? Discussed goals for glycemic control (<95 FBG, <140 1-hr PP).? 3. Discussed the effect of carbohydrates/protein/fat on blood sugar control.? Stressed importance of consistent carbohydrate intake at each meal and provided instructions for recommended servings/portions of carbohydrates/protein per meal.? Provided pt with educational material. 4. Introduced carbohydrate counting and measuring carbohydrate content via servings sizes and reading nutrition labels.? Provided handouts.? Pt will need further review 5. Discussed importance of meal timing and not going >3 hours between meals.? Provided sample meal schedule for pt.? Pt agreeable.?? 6. Discussed importance a pre-tatiana vitamin and including food sources of calcium, vitamin D, iron and folic acid for baby and mother?s nutrition support. 7. Discussed caffeine intake. Recommend no more than 200 mg/day (1 cup coffee). 8. Discussed rule of 15 for hypoglycemia. 9. Recommend patient purchase Urine Ketone strips and instructed on use and when to contact provider. 10. Recommended patient continue exercise as appropriate per PCP approval. 11. Patient may need medication management, will follow-up with plan of care at next visit after reviewing glucose results.? MONITOR/EVAL: Follow up scheduled X 1 week. Good compliance expected. Review: carb sources, carb counting, portion size, meal timing, BG log, weight.
== END ==
PROVIDERS: PCP Nurse Practitioner Family; Referring Provider Nurse Practitioner Family; Visit Provider Nurse Practitioner Family
DX: O24.415 Gestational diabetes mellitus in pregnancy, controlled by oral hypoglycemic drugs (principal)
CPT/HCPCS: G0108

== ENCOUNTER 2020-12-09 09:59 | Outpatient (CLI) | payer OTHER, SELFPAY ==
--- NOTE | 2020-12-09 10:09 | DI.US.S_ITS ---
PROCEDURE: US OB LIMITED INDICATIONS: AMNIOTIC FLUID CHECK. OUTSIDE/PRIOR DATING DATA: Last menstrual period (LMP): 04/23/2020. LMP-based estimated date of delivery (MAUREEN): 01/28/2021. First dating scan (date and location): 06/13/2020. Estimated date of delivery (MAUREEN) from first dating scan: 02/02/2021. TECHNIQUE: Real-time scanning was performed of the fetus, with image documentation and biometric measurements. Endovaginal scanning: Not indicated COMPARISON: [facility], US OB LIMITED, 07/21/2019, 10:32. FINDINGS: General: A single living intrauterine gestation is present. Presentation: Breech Placenta: Placental position is posterior fundal, without previa. Amniotic fluid index: 22.6 cm, normal range is 5-24 cm. heart rate: 147 beats per minute. Maternal cervical canal: Not well seen on this study. Normal lower limit is 2.5 cm. Estimated gestational age from initial scan: 32 weeks, 1 day. Other: chest, stomach , bilateral kidneys and urinary bladder are visualized and are within normal limits. IMPRESSION: 1. Single live intrauterine with fetus in breech presentation. heart rate is 147 beats per minute. Normal amount of amniotic fluid. MICKEY equals 22.6 cm. Dictated by: Luis Rodrigues M.D. on 12/09/2020 at 10:58 Approved by: Luis Rodrigues M.D. on 12/09/2020 at 11:01
--- NOTE | 2020-12-09 10:58 | PM.OBTRLD ---
Visit Information Visit Information Date of evaluation: 12/09/20 Primary OB Provider: Sapna Still Reason for Evaluation: Yes non-stress test non-stress test reason: diabetes Vital Signs Vital Signs: T 36.5 BP 110/63 P 103 PFSH Medical History (Updated 12/06/20 @ 08:56 by Sapna Still DO) Abnormal Pap smear of cervix Anxiety and depression ASCUS (atypical squamous cells of undetermined significance) on gynecologic Papanicolaou smear complicating , antepartum (~07/26/18) Chicken pox (~1993) Chronic back pain (~2007) GDM, class A2 Hemorrhoid (~1999) History of recurrent ear infection (~1989) Irritable bowel syndrome (~2009) Recurrent sinusitis (~1997) Seasonal allergies Tinnitus (~2017) UTI (urinary tract infection) Surgical History Anesthesia Status post (~07/25/19) Family History Father Hypertension Hyperlipidemia Mother Hyperlipidemia Grandfather Leg length discrepancy Extra finger Grandmother Cancer History of heart disease Status post cardiac surgery Breast cancer Grandfather History of heart disease Stroke Grandmother Skin cancer Colon cancer Family/Other Stroke Family/Other History of open heart surgery Family/Other Lupus (systemic lupus erythematosus) Social History marital status: household members: significant other and children 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 NST reactive, MICKEY 22.6. Continue twice weekly NST and weekly MICKEY. OB Disposition: home
== END 2020-12-09 10:42 | disposition home or self-care (01) ==
LOC: LABOR 10:48 → OB 12:32
PROVIDERS: PCP Nurse Practitioner Family; Referring Provider Family Medicine; Visit Provider Family Medicine
DX: O24.415 Gestational diabetes mellitus in pregnancy, controlled by oral hypoglycemic drugs (principal); Z3A.32 32 weeks gestation of pregnancy
CPT/HCPCS: 59025; 76815; G0378; G0379

== ENCOUNTER 2020-12-13 07:58 | Outpatient (CLI) | payer OTHER, SELFPAY ==
--- NOTE | 2020-12-13 08:28 | P.TNLD_ITS ---
Visit Information Visit Information Date of evaluation: 12/13/20 Reason for Evaluation: Yes non-stress test non-stress test reason: diabetes Vital Signs Vital Signs: BP 114/63 P 93 PFSH Medical History Abnormal Pap smear of cervix Anxiety and depression ASCUS (atypical squamous cells of undetermined significance) on gynecologic Papanicolaou smear complicating , antepartum (~07/26/18) Chicken pox (~1993) Chronic back pain (~2007) GDM, class A2 Hemorrhoid (~1999) History of recurrent ear infection (~1989) Irritable bowel syndrome (~2009) Recurrent sinusitis (~1997) Seasonal allergies Tinnitus (~2017) UTI (urinary tract infection) Surgical History Anesthesia Status post (~07/25/19) Family History Father Hypertension Hyperlipidemia Mother Hyperlipidemia Grandfather Leg length discrepancy Extra finger Grandmother Cancer History of heart disease Status post cardiac surgery Breast cancer Grandfather History of heart disease Stroke Grandmother Skin cancer Colon cancer Family/Other Stroke Family/Other History of open heart surgery Family/Other Lupus (systemic lupus erythematosus) Social History marital status: household members: significant other and children 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 NST reactive. Continue twice weekly NST and weekly MICKEY. OB Disposition: home
== END 2020-12-13 08:35 | disposition home or self-care (01) ==
LOC: LABOR 08:12 → OB 12-14 11:23
PROVIDERS: PCP Nurse Practitioner Family; Referring Provider Family Medicine; Visit Provider Family Medicine
DX: O24.415 Gestational diabetes mellitus in pregnancy, controlled by oral hypoglycemic drugs (principal); Z3A.33 33 weeks gestation of pregnancy
CPT/HCPCS: 59025; G0378; G0379

== ENCOUNTER 2020-12-16 09:25 | Outpatient (CLI) | payer OTHER, SELFPAY ==
--- NOTE | 2020-12-16 10:44 | P.TNLD_ITS ---
Visit Information Visit Information Date of evaluation: 12/16/20 Primary OB Provider: Sapna Still On-call OB Provider: Mae Jones Reason for Evaluation: Yes non-stress test Comments/Additional reasons for admission: This patient is a 30-year-old 001 at 33 in 6 of the complicated by GDM A2 on metformin, presenting for scheduled NST with no obstetrical complaints. Vital Signs Vital Signs: 108/59, hr 78 PFSH Medical History Abnormal Pap smear of cervix Anxiety and depression ASCUS (atypical squamous cells of undetermined significance) on gynecologic Papanicolaou smear complicating , antepartum (~07/26/18) Chicken pox (~1993) Chronic back pain (~2007) GDM, class A2 Hemorrhoid (~1999) History of recurrent ear infection (~1989) Irritable bowel syndrome (~2009) Recurrent sinusitis (~1997) Seasonal allergies Tinnitus (~2017) UTI (urinary tract infection) Surgical History Anesthesia Status post (~07/25/19) Family History Father Hypertension Hyperlipidemia Mother Hyperlipidemia Grandfather Leg length discrepancy Extra finger Grandmother Cancer History of heart disease Status post cardiac surgery Breast cancer Grandfather History of heart disease Stroke Grandmother Skin cancer Colon cancer Family/Other Stroke Family/Other History of open heart surgery Family/Other Lupus (systemic lupus erythematosus) Social History marital status: household members: significant other and children 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 OB Disposition: home
--- NOTE | 2020-12-16 11:12 | DI.US.S_ITS ---
PROCEDURE: US OB LIMITED INDICATIONS: MICKEY OUTSIDE/PRIOR DATING DATA: Last menstrual period (LMP): 04/23/20. LMP-based estimated date of delivery (MAUREEN): 01/28/21 . First dating scan (date and location): 06/13/20 . Estimated date of delivery (MAUREEN) from first dating scan: 02/02/21 . TECHNIQUE: Real-time scanning was performed of the fetus, with image documentation. Endovaginal scanning: Not needed COMPARISON: [facility], OB LIMITED, 12/09/2020, 10:26. [facility], OB LIMITED, 07/21/2019, 10:32. FINDINGS: A single living intrauterine gestation is present. Presentation: Vertex. Placenta: Placental position is posterior , without previa. Amniotic fluid index: 24.1 cm, normal range is 5-24 cm. Estimated gestational age from initial scan: 33 weeks 1 day . IMPRESSION: Normal amniotic fluid index, vertex presentation. Heart rate 128 beats per minute. Dictated by: Sheldon Rodriguez M.D. on 12/16/2020 at 12:26 Approved by: Sheldon Rodriguez M.D. on 12/16/2020 at 12:28
== END 2020-12-16 10:52 | disposition home or self-care (01) ==
LOC: LABOR 10:00 → OB 12-19 13:06
PROVIDERS: PCP Nurse Practitioner Family; Referring Provider Family Medicine; Visit Provider Family Medicine
DX: O24.415 Gestational diabetes mellitus in pregnancy, controlled by oral hypoglycemic drugs (principal); Z3A.33 33 weeks gestation of pregnancy
CPT/HCPCS: 59025; 76815; G0378; G0379

== ENCOUNTER 2020-12-20 08:02 | Outpatient (CLI) | payer OTHER, SELFPAY ==
--- NOTE | 2020-12-20 08:23 | PM.OBTRLD ---
Visit Information Visit Information Date of evaluation: 12/20/20 Primary OB Provider: Sapna Still Reason for Evaluation: Yes non-stress test non-stress test reason: diabetes Vital Signs Vital Signs: T 35.5 BP 105/60 HR 84 PFSH Medical History Abnormal Pap smear of cervix Anxiety and depression ASCUS (atypical squamous cells of undetermined significance) on gynecologic Papanicolaou smear complicating , antepartum (~07/26/18) Chicken pox (~1993) Chronic back pain (~2007) GDM, class A2 Hemorrhoid (~1999) History of recurrent ear infection (~1989) Irritable bowel syndrome (~2009) Recurrent sinusitis (~1997) Seasonal allergies Tinnitus (~2017) UTI (urinary tract infection) Surgical History Anesthesia Status post (~07/25/19) Family History Father Hypertension Hyperlipidemia Mother Hyperlipidemia Grandfather Leg length discrepancy Extra finger Grandmother Cancer History of heart disease Status post cardiac surgery Breast cancer Grandfather History of heart disease Stroke Grandmother Skin cancer Colon cancer Family/Other Stroke Family/Other History of open heart surgery Family/Other Lupus (systemic lupus erythematosus) Social History marital status: household members: significant other and children 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 NST reactive. Continue twice weekly NST and weekly MICKEY. OB Disposition: home
== END 2020-12-20 08:43 | disposition home or self-care (01) ==
LOC: OB 12-21 07:34
PROVIDERS: PCP Nurse Practitioner Family; Referring Provider Family Medicine; Visit Provider Family Medicine
DX: O24.419 Gestational diabetes mellitus in pregnancy, unspecified control (principal); O47.03 False labor before 37 completed weeks of gestation, third trimester; Z3A.34 34 weeks gestation of pregnancy
CPT/HCPCS: 59025; G0378; G0379

== ENCOUNTER → 2020-12-20 08:41 | Outpatient (CLI) | payer OTHER, SELFPAY ==
--- NOTE | 2020-12-20 09:36 | DIET.PN ---
Gestational Diabetes Follow Up ? ASSESS:? Ms. Rao was seen for gestational diabetes follow up. She continues to keep a food and glucose record. Her fasting numbers have in range, however her post prandials remain elevated, likely due to food choices. She will often skip lunch and have a high carb evening meal. ? LABS: FB-89 1 hr PP:??94-150 ? Weight: ? DIET: B: pancakes, cereal, bananas, granola bar, lb latte L: mac n cheese, BLT, pizza, pot pie, rice D: same as above ? EXERCISE:?? ? NUTRITION Dx? 1. Altered nutrition related labs r/t gestational diabetes aeb recent labs (OGGT). ? INTERVENTION? 1. Reviewed blood sugar log and implications/reasons for elevated/decreased blood sugar.? Pt with good understanding.? 2. Reviewed carbohydrate counting and importance of consistent carbohydrate intake. Stressed need for reduced carbohydrate intake. ? 3. Reviewed meal intake and importance of balanced meals. 4. Discussed evening snacks ideas. Recommended avoiding milk and fruit after dinner to help with elevated FBG. 5. Recommended pt avoid processed foods as much as possible and aim to get most nutrients from refrigerated options. Suggested cutting up vegetables and making protein rich salads (chicken/egg salad) ahead of time for quick snacks. 6. Discussed possible need for increased medication management if >80% of fasting and post-prandial readings are not within recommended values (FBG<95, 1 hr PP <140). Pt agreeable. ? MONITOR/EVALUATE: Pt receptive to information provided.?. Patient will call if blood glucose is not in range.
== END ==
PROVIDERS: PCP Nurse Practitioner Family; Referring Provider Nurse Practitioner Family; Visit Provider Family Medicine
DX: O24.419 Gestational diabetes mellitus in pregnancy, unspecified control (principal); Z71.3 Dietary counseling and surveillance
CPT/HCPCS: G0109

== ENCOUNTER → 2020-12-23 09:09 | Outpatient (CLI) | payer OTHER, SELFPAY ==
--- NOTE | 2020-12-23 09:10 | DI.US.S_ITS ---
PROCEDURE: US OB LIMITED INDICATIONS: GESTATIONAL DIABETES - GROWTH OUTSIDE/PRIOR DATING DATA: Last menstrual period (LMP): 04/23/2020. LMP-based estimated date of delivery (MAUREEN): 01/28/2021. First dating scan (date and location): 06/13/2020. Estimated date of delivery (MAUREEN) from first dating scan: 02/02/2021. TECHNIQUE: Real-time scanning was performed of the fetus, with image documentation and biometric measurements. Endovaginal scanning: Not indicated COMPARISON: [facility], OB LIMITED, 12/16/2020, 11:28. FINDINGS: General: A single living intrauterine gestation is present. Presentation: Vertex Placenta: Placental position is posterior, without previa. Amniotic fluid index: 19.2 cm, normal range is 5-24 cm. heart rate: 120 beats per minute. Maternal cervical canal: Not well seen biometrics: Biparietal diameter: 9.2 centimeters, 37 weeks, 3 days Head circumference: 32.5 cm, 36 weeks, 6 days Abdominal circumference: 32 cm, 36 weeks, 0 day Femur length: 6.9 cm, 35 weeks, 2 days Estimated gestational age from initial scan: 34 weeks, 1 day Composite gestational age from present scan: 36 weeks, 3 days Estimated weight and percentile: 2829 grams, 92 percent. Measurement variability for biometric dating: +/- 7 days from 14 weeks to 15 weeks 6 days gestation, +/- 10 days from 16 weeks to 21 weeks 6 days gestation, +/- 2 weeks from 22 weeks to 27 weeks 6 days gestation, +/- 3 weeks for 28 weeks gestation or later. weight reference: 4500 g or EFW >90/95% is considered macrosomia or large for gestational age. EFW <10% is small for gestational age. EFW 5% or less is considered intra-uterine growth restriction. Other: chest, stomach and urinary bladder are visualized and are within normal limits. Prominent bilateral kidneys are noted. Right kidney measures 40.3 mm in length, left kidney measures 38.8 mm in length. No hydronephrosis is seen. IMPRESSION: 1. Single live intrauterine with fetus in vertex presentation. heart rate is 120 beats per minute. Normal amount of amniotic fluid. Normal growth. 2. Prominent bilateral kidneys are seen without hydronephrosis as described above. Dictated by: Luis Rodrigues M.D. on 12/23/2020 at 13:42 Approved by: Luis Rodrigues M.D. on 12/23/2020 at 13:45
== END ==
PROVIDERS: PCP Nurse Practitioner Family; Referring Provider Family Medicine; Visit Provider Family Medicine
DX: O24.419 Gestational diabetes mellitus in pregnancy, unspecified control (principal); Z3A.36 36 weeks gestation of pregnancy
CPT/HCPCS: 76815

== ENCOUNTER 2020-12-23 09:51 | Outpatient (CLI) | payer OTHER, SELFPAY ==
--- NOTE | 2020-12-23 10:47 | PM.OBTRLD ---
Visit Information Visit Information Date of evaluation: 12/23/20 Primary OB Provider: Sapna Still Reason for Evaluation: Yes non-stress test non-stress test reason: diabetes Vital Signs Vital Signs: Temperature 36.3? blood pressure 98/67 heart rate 84 PFSH Medical History Abnormal Pap smear of cervix Anxiety and depression ASCUS (atypical squamous cells of undetermined significance) on gynecologic Papanicolaou smear complicating , antepartum (~07/26/18) Chicken pox (~1993) Chronic back pain (~2007) GDM, class A2 Hemorrhoid (~1999) History of recurrent ear infection (~1989) Irritable bowel syndrome (~2009) Recurrent sinusitis (~1997) Seasonal allergies Tinnitus (~2017) UTI (urinary tract infection) Surgical History Anesthesia Status post (~07/25/19) Family History Father Hypertension Hyperlipidemia Mother Hyperlipidemia Grandfather Leg length discrepancy Extra finger Grandmother Cancer History of heart disease Status post cardiac surgery Breast cancer Grandfather History of heart disease Stroke Grandmother Skin cancer Colon cancer Family/Other Stroke Family/Other History of open heart surgery Family/Other Lupus (systemic lupus erythematosus) Social History marital status: household members: significant other and children 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 NST reactive. Growth US today. Continue twice weekly NST and weekly MICKEY. OB Disposition: home
== END 2020-12-23 10:55 | disposition home or self-care (01) ==
LOC: LABOR 10:12 → OB 12-26 09:13
PROVIDERS: PCP Nurse Practitioner Family; Referring Provider Family Medicine; Visit Provider Family Medicine
DX: O24.415 Gestational diabetes mellitus in pregnancy, controlled by oral hypoglycemic drugs (principal); Z3A.34 34 weeks gestation of pregnancy
CPT/HCPCS: 59025; 76815; G0378; G0379

== ENCOUNTER 2020-12-27 08:54 | Outpatient (CLI) | payer OTHER, SELFPAY ==
--- NOTE | 2020-12-27 10:07 | PM.OBTRLD ---
Visit Information Visit Information Date of evaluation: 12/27/20 Primary OB Provider: Sapna Still Reason for Evaluation: Yes non-stress test non-stress test reason: diabetes Vital Signs Vital Signs: T 36.3 BP 114/60 P 82 PFSH Medical History Abnormal Pap smear of cervix Anxiety and depression ASCUS (atypical squamous cells of undetermined significance) on gynecologic Papanicolaou smear complicating , antepartum (~07/26/18) Chicken pox (~1993) Chronic back pain (~2007) GDM, class A2 Hemorrhoid (~1999) History of recurrent ear infection (~1989) Irritable bowel syndrome (~2009) Recurrent sinusitis (~1997) Seasonal allergies Tinnitus (~2017) UTI (urinary tract infection) Surgical History Anesthesia Status post (~07/25/19) Family History Father Hypertension Hyperlipidemia Mother Hyperlipidemia Grandfather Leg length discrepancy Extra finger Grandmother Cancer History of heart disease Status post cardiac surgery Breast cancer Grandfather History of heart disease Stroke Grandmother Skin cancer Colon cancer Family/Other Stroke Family/Other History of open heart surgery Family/Other Lupus (systemic lupus erythematosus) Social History marital status: household members: significant other and children 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 NST reactive. Two contractions noted on monitor which patient did not feel. Continue twice weekly NST and weekly MICKEY. OB Disposition: home
== END 2020-12-27 09:50 | disposition home or self-care (01) ==
LOC: LABOR 09:18 → OB 12-28 08:23
PROVIDERS: PCP Nurse Practitioner Family; Referring Provider Family Medicine; Visit Provider Family Medicine
DX: O24.415 Gestational diabetes mellitus in pregnancy, controlled by oral hypoglycemic drugs (principal); Z3A.35 35 weeks gestation of pregnancy
CPT/HCPCS: 59025; G0378; G0379

== ENCOUNTER 2020-12-30 10:26 | Outpatient (CLI) | payer OTHER, SELFPAY ==
--- NOTE | 2020-12-30 10:41 | DI.US.S_ITS ---
PROCEDURE: US OB >= 14 WEEKS FETUS INDICATIONS: Diabetes, Macrosomia OUTSIDE/PRIOR DATING DATA: Last menstrual period (LMP): 04/23/20 . LMP-based estimated date of delivery (MAUREEN): 01/28/21 . First dating scan (date and location): 06/13/20 . Estimated date of delivery (MAUREEN) from first dating scan: 02/02/21 . TECHNIQUE: Real-time scanning was performed of the fetus, with image documentation and biometric measurements. Endovaginal scanning: Not performed COMPARISON: [facility], OB LIMITED, 12/23/2020, 9:23. [facility], OB >= 14 WEEKS FETUS, 09/13/2020, 9:29. FINDINGS: General: A single living intrauterine gestation is present. Presentation: Vertex. Placenta: Placental position is posterior , without previa. Amniotic fluid index: 21.3 cm, normal range is 5-24 cm. Largest pocket is 6.1 cm. heart rate: 119 beats per minute. Maternal cervical canal: Not seen biometrics: Biparietal diameter: 8.7 cm, 35 weeks, one day Head circumference: 33.0 cm, 37 weeks, four days Abdominal circumference: 32.6 cm, 36 weeks, four days Femur length: 7.1 cm, 36 weeks, one day Estimated gestational age from initial scan: 35 weeks, one day. Composite gestational age from present scan: 36 weeks, three days Estimated weight and percentile: 2923 g, 6 lb 7 oz +/-15 oz, 81st percentile Measurement variability for biometric dating: +/- 7 days from 14 weeks to 15 weeks 6 days gestation, +/- 10 days from 16 weeks to 21 weeks 6 days gestation, +/- 2 weeks from 22 weeks to 27 weeks 6 days gestation, +/- 3 weeks for 28 weeks gestation or later. weight reference: 4500 g or EFW >90/95% is considered macrosomia or large for gestational age. EFW <10% is small for gestational age. EFW 5% or less is considered intra-uterine growth restriction. IMPRESSION: 1. Single living intrauterine with appropriate growth compared to the prior study. 2. Estimated weight percentile is 81st, however the head is difficult to see and measure due to low position in the pelvis. Dictated by: Melissa Yu M.D. on 12/30/2020 at 11:01 Approved by: Melissa Yu M.D. on 12/30/2020 at 11:06
--- NOTE | 2020-12-30 11:27 | P.TNLD_ITS ---
Visit Information Visit Information Date of evaluation: 12/30/20 Primary OB Provider: Sapna Still On-call OB Provider: Damion Reason for Evaluation: Yes non-stress test non-stress test reason: diabetes Vital Signs Vital Signs: Blood pressure 108/63, pulse 93, temperature 96.8? [facility] Medical History Abnormal Pap smear of cervix Anxiety and depression ASCUS (atypical squamous cells of undetermined significance) on gynecologic Papanicolaou smear complicating , antepartum (~07/26/18) Chicken pox (~1993) Chronic back pain (~2007) GDM, class A2 Hemorrhoid (~1999) History of recurrent ear infection (~1989) Irritable bowel syndrome (~2009) Recurrent sinusitis (~1997) Seasonal allergies Tinnitus (~2017) UTI (urinary tract infection) Surgical History Anesthesia Status post (~07/25/19) Family History Father Hypertension Hyperlipidemia Mother Hyperlipidemia Grandfather Leg length discrepancy Extra finger Grandmother Cancer History of heart disease Status post cardiac surgery Breast cancer Grandfather History of heart disease Stroke Grandmother Skin cancer Colon cancer Family/Other Stroke Family/Other History of open heart surgery Family/Other Lupus (systemic lupus erythematosus) Social History marital status: household members: significant other and children 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 Follow-up routine OB visit with Dr. Still OB Disposition: home
== END 2020-12-30 11:30 | disposition home or self-care (01) ==
LOC: OB 01-01 12:17
PROVIDERS: PCP Nurse Practitioner Family; Referring Provider Specialist; Visit Provider Specialist
DX: O24.415 Gestational diabetes mellitus in pregnancy, controlled by oral hypoglycemic drugs (principal); Z3A.35 35 weeks gestation of pregnancy
CPT/HCPCS: 59025; 59050; 76815; G0378; G0379

== ENCOUNTER 2021-01-03 09:23 | Outpatient (CLI) | payer OTHER, SELFPAY ==
--- NOTE | 2021-01-03 09:51 | P.TNLD_ITS ---
Visit Information Visit Information Date of evaluation: 01/03/21 Primary OB Provider: Sapna Still Reason for Evaluation: Yes non-stress test non-stress test reason: diabetes Vital Signs Vital Signs: BP 114/56 PFSH Medical History Abnormal Pap smear of cervix Anxiety and depression ASCUS (atypical squamous cells of undetermined significance) on gynecologic Papanicolaou smear complicating , antepartum (~07/26/18) Chicken pox (~1993) Chronic back pain (~2007) GDM, class A2 Hemorrhoid (~1999) History of recurrent ear infection (~1989) Irritable bowel syndrome (~2009) Recurrent sinusitis (~1997) Seasonal allergies Tinnitus (~2017) UTI (urinary tract infection) Surgical History Anesthesia Status post (~07/25/19) Family History Father Hypertension Hyperlipidemia Mother Hyperlipidemia Grandfather Leg length discrepancy Extra finger Grandmother Cancer History of heart disease Status post cardiac surgery Breast cancer Grandfather History of heart disease Stroke Grandmother Skin cancer Colon cancer Family/Other Stroke Family/Other History of open heart surgery Family/Other Lupus (systemic lupus erythematosus) Social History marital status: household members: significant other and children 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 NST reactive. Contractions noted on monitor however patient states very mild. Continue twice weekly NST and weekly MICKEY. OB Disposition: home
== END 2021-01-03 09:55 | disposition home or self-care (01) ==
LOC: LABOR 09:33 → OB 01-04 09:22
PROVIDERS: PCP Nurse Practitioner Family; Referring Provider Family Medicine; Visit Provider Family Medicine
DX: O24.415 Gestational diabetes mellitus in pregnancy, controlled by oral hypoglycemic drugs (principal); O47.03 False labor before 37 completed weeks of gestation, third trimester; Z3A.36 36 weeks gestation of pregnancy
CPT/HCPCS: 59025; G0378; G0379

== ENCOUNTER → 2021-01-06 08:07 | Outpatient (CLI) | payer OTHER, SELFPAY ==
--- NOTE | 2021-01-06 08:08 | DI.US.S_ITS ---
PROCEDURE: US OB LIMITED INDICATIONS: AMNIOTIC FLUID OUTSIDE/PRIOR DATING DATA: Last menstrual period (LMP): 04/23/2020. LMP-based estimated date of delivery (MAUREEN): 01/28/2021. First dating scan (date and location): 06/13/2020. Estimated date of delivery (MAUREEN) from first dating scan: 02/02/2021. TECHNIQUE: Real-time scanning was performed of the fetus, with image documentation and biometric measurements. Endovaginal scanning: No COMPARISON: [facility], OB >= 14 WEEKS FETUS, 12/30/2020, 11:10. [facility], OB LIMITED, 12/23/2020, 9:23. FINDINGS: General: A single living intrauterine gestation is present. Presentation: Vertex. Placenta: Placental position is posterior. Amniotic fluid index: 17.9 cm, normal range is 5-24 cm. heart rate: 145 beats per minute. Maternal cervical canal: Not well seen. Estimated gestational age from initial scan: 36 weeks 1 day IMPRESSION: 1. King living intrauterine at 36 weeks 1 day based on prior ultrasound. 2. Normal placenta and amniotic fluid. 3. Cervix is not well seen. Dictated by: Jhon Bess [facility] Interpreted: Cedric Ugalde MD on 01/06/2021 at 9:48 Approved by: Cedric Ugalde M.D. on 01/06/2021 at 10:45
== END ==
PROVIDERS: PCP Nurse Practitioner Family; Referring Provider Family Medicine; Visit Provider Family Medicine
DX: O24.419 Gestational diabetes mellitus in pregnancy, unspecified control (principal); Z3A.36 36 weeks gestation of pregnancy
CPT/HCPCS: 76815

== ENCOUNTER 2021-01-06 08:55 | Outpatient (CLI) | payer OTHER, SELFPAY | END 2021-01-06 09:45 | disposition home or self-care (01) | LOC: LABOR 09:04 → OB 01-09 08:14 | PROVIDERS: PCP Nurse Practitioner Family; Referring Provider Family Medicine; Visit Provider Family Medicine | DX: O24.415 Gestational diabetes mellitus in pregnancy, controlled by oral hypoglycemic drugs (principal); Z3A.37 37 weeks gestation of pregnancy | CPT/HCPCS: 59025; 76815; 87653; G0378; G0379 ==

== ENCOUNTER → 2021-01-06 09:51 | Outpatient (CLI) | payer OTHER, SELFPAY ==
[2021-01-07 13:17] LABS: Strep Grp B PCR NEG for Grp B Strep
== END ==
PROVIDERS: PCP Nurse Practitioner Family; Visit Provider Family Medicine
DX: Z3A.36 36 weeks gestation of pregnancy (principal)
CPT/HCPCS: 87653

== ENCOUNTER 2021-01-10 08:03 | Outpatient (CLI) | payer OTHER, SELFPAY ==
--- NOTE | 2021-01-10 08:38 | PM.OBTRLD ---
Visit Information Visit Information Date of evaluation: 01/10/21 Primary OB Provider: Sapna Still Reason for Evaluation: Yes non-stress test non-stress test reason: diabetes Vital Signs Vital Signs: T 36.2 BP 114/63 P 92 PFSH Medical History Abnormal Pap smear of cervix Anxiety and depression ASCUS (atypical squamous cells of undetermined significance) on gynecologic Papanicolaou smear complicating , antepartum (~07/26/18) Chicken pox (~1993) Chronic back pain (~2007) GDM, class A2 Hemorrhoid (~1999) History of recurrent ear infection (~1989) Irritable bowel syndrome (~2009) Recurrent sinusitis (~1997) Seasonal allergies Tinnitus (~2017) UTI (urinary tract infection) Surgical History Anesthesia Status post (~07/25/19) Family History Father Hypertension Hyperlipidemia Mother Hyperlipidemia Grandfather Leg length discrepancy Extra finger Grandmother Cancer History of heart disease Status post cardiac surgery Breast cancer Grandfather History of heart disease Stroke Grandmother Skin cancer Colon cancer Family/Other Stroke Family/Other History of open heart surgery Family/Other Lupus (systemic lupus erythematosus) Social History marital status: household members: significant other and children 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 NST reactive. Continue twice weekly NST and weekly MICKEY. OB Disposition: home
== END 2021-01-10 08:45 | disposition home or self-care (01) ==
LOC: OB 01-11 06:49
PROVIDERS: PCP Nurse Practitioner Family; Referring Provider Family Medicine; Visit Provider Family Medicine
DX: O24.415 Gestational diabetes mellitus in pregnancy, controlled by oral hypoglycemic drugs (principal); Z3A.37 37 weeks gestation of pregnancy
CPT/HCPCS: 59025; G0378; G0379

== ENCOUNTER 2021-01-17 08:22 | Observation (INO) | payer OTHER, SELFPAY ==
[2021-01-17 09:03] VITALS: TEMP 37.5
[2021-01-17] MEDS: ACETAMINOPHEN 325 MG TABLET 650 MG PO (09:03)
[2021-01-17] MEDS: LACTATED RINGERS 500 ML 1000 ML IV (09:41)
--- NOTE | 2021-01-17 12:26 | PM.OBTRLD ---
Visit Information Visit Information Date of evaluation: 01/17/21 Primary OB Provider: Sapna Still Reason for Evaluation: Yes non-stress test non-stress test reason: diabetes Comments/Additional reasons for admission: Patient came in for her scheduled NST for gestational diabetes. She had her second COVID vaccine yesterday and reports feeling tired, headache, achy and generally unwell today. She has been drinking fluids and last took Tylenol at 3 this morning. She reports good movement and denies leaking, contractions or bleeding. Vital Signs Vital Signs: Vital Signs - 8 hr 01/17/21 09:03 Temperature 99.5 F Initial temperature 37.4 with blood pressure 127/73 and heart rate 111. Repeat temperature after Tylenol and IV fluids was 36.9 with heart rate in the 90s. [facility] Medical History Abnormal Pap smear of cervix Anxiety and depression ASCUS (atypical squamous cells of undetermined significance) on gynecologic Papanicolaou smear complicating , antepartum (~07/26/18) Chicken pox (~1993) Chronic back pain (~2007) GDM, class A2 Hemorrhoid (~1999) History of recurrent ear infection (~1989) Irritable bowel syndrome (~2009) Recurrent sinusitis (~1997) Seasonal allergies Tinnitus (~2017) UTI (urinary tract infection) Surgical History Anesthesia Status post (~07/25/19) Family History Father Hypertension Hyperlipidemia Mother Hyperlipidemia Grandfather Leg length discrepancy Extra finger Grandmother Cancer History of heart disease Status post cardiac surgery Breast cancer Grandfather History of heart disease Stroke Grandmother Skin cancer Colon cancer Family/Other Stroke Family/Other History of open heart surgery Family/Other Lupus (systemic lupus erythematosus) Social History marital status: household members: significant other and children 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 She came in for her scheduled NST due to GDM A2 but also had her second COVID-19 vaccine yesterday and was feeling poorly. She was found to be tachycardic in the 110s with associated tachycardia initially in the 180s then down to 170s. Initial temperature was 37.4?. She was given Tylenol and 2 L of LR. Temperature improved to 36.9 as did heart rate down to the 90s. tachycardia improved as well down to a baseline of the 150s with moderate variability and accelerations. Patient reported feeling much better after Tylenol and IV fluids as well. She will discharge home and return in 4 days for her second NST of the week. She is scheduled for repeat in 1 week. OB Disposition: home
== END 2021-01-17 12:20 | disposition home or self-care (01) ==
PROVIDERS: Admitting Provider Family Medicine; PCP Nurse Practitioner Family; Referring Provider Family Medicine; Visit Provider Family Medicine
DX: O24.419 Gestational diabetes mellitus in pregnancy, unspecified control (principal); R53.83 Other fatigue; R51.9 Headache, unspecified; Z3A.38 38 weeks gestation of pregnancy
CPT/HCPCS: 59025; 59050; 96360; G0378; G0379

== ENCOUNTER → 2021-01-20 08:13 | Outpatient (CLI) | payer OTHER, SELFPAY ==
--- NOTE | 2021-01-20 08:14 | DI.US.S_ITS ---
PROCEDURE: US OB LIMITED INDICATIONS: AMNIOTIC FLUID INDEX OUTSIDE/PRIOR DATING DATA: Last menstrual period (LMP): 04/23/2020. LMP-based estimated date of delivery (MAUREEN): 01/28/2021 . First dating scan (date and location): 06/13/2020 . Estimated date of delivery (MAUREEN) from first dating scan: 02/02/2021 . TECHNIQUE: Real-time scanning was performed of the fetus, with image documentation and biometric measurements. Endovaginal scanning: No COMPARISON: [facility], OB LIMITED, 01/06/2021, 8:32. FINDINGS: General: A single living intrauterine gestation is present. Presentation: Vertex. Placenta: Placental position is posterior , without previa. Amniotic fluid index: 17.9 cm, normal range is 5-24 cm. heart rate: 135 beats per minute. Maternal cervical canal: Not well seen Estimated gestational age from initial scan: 38 weeks 1 day IMPRESSION: Single living IUP redemonstrated and amniotic fluid index is normal. Dictated by: Jhon Bess [facility] Interpreted: Peggy Obrien MD on 01/20/2021 at 14:54 Approved by: Peggy Obrien M.D. on 01/20/2021 at 16:50
== END ==
PROVIDERS: PCP Nurse Practitioner Family; Referring Provider Family Medicine; Visit Provider Family Medicine
DX: O24.419 Gestational diabetes mellitus in pregnancy, unspecified control (principal); Z3A.38 38 weeks gestation of pregnancy
CPT/HCPCS: 76815

== ENCOUNTER 2021-01-20 08:51 | Outpatient (CLI) | payer OTHER, SELFPAY | END 2021-01-20 09:22 | disposition home or self-care (01) | LOC: OB 01-23 09:17 | PROVIDERS: PCP Nurse Practitioner Family; Referring Provider Family Medicine; Visit Provider Family Medicine | DX: O24.415 Gestational diabetes mellitus in pregnancy, controlled by oral hypoglycemic drugs (principal); Z3A.38 38 weeks gestation of pregnancy | CPT/HCPCS: 59025; 76815; G0378; G0379 ==

== ENCOUNTER 2021-01-24 06:05 | Inpatient (IN) | payer OTHER, SELFPAY ==
[2021-01-24 07:00] LABS: Add Manual Diff / Slide Review NO; Basophils Absolute Auto 0 /uL (0-100); Basophils Percent Auto 0.3 % (0-2); Eosinophils Absolute Auto 0 /uL (0-450); Eosinophils Percent Auto 0.6 % (2-4); Hematocrit 38.2 % (36-46); Hemoglobin 12.6 g/dL (12.0-16.0); Lymphocytes Absolute Auto 2200 /uL (1100-4500); Mean Corpuscular HGB Conc 33.1 % (30-36); Mean Corpuscular Hemoglobin 29.9 PG (26-34); Mean Corpuscular Volume 90.3 fL (80-100); Monocytes Absolute Auto 1000 /uL (0-900); Monocytes Percent Auto 13.2 % (3-14); Neutrophils Absolute Auto 4500 /uL (1500-7000); Neutrophils Percent Auto 57.9 % (50-75); Platelet Count 171 X10^3/uL (150-400); Red Blood Cell Count 4.22 X10^6/uL (4.0-5.2); Red Cell Distribution Width 13.7 % (11.6-14.8); White Blood Cell Count 7.8 X10^3/uL (4.5-11.0)
--- NOTE | 2021-01-24 07:05 | P.HPOB_ITS ---
OB HPI Date/Time Date of admission: 01/24/21 Date Patient Seen: 01/24/21 Time Patient Seen: 07:25 History of Present Condition Chief complaint: REPEAT : 2 Para: 1 Estimated Date of Delivery: 01/28/21 Estimated Gestational Age (weeks): 39w3d Narrative: Ana Maria Rao is a 30 year old at 39 weeks and 3 days gestation here for repeat . complicated by GDM A2 on metformin with good control. Last EFW was 82% at 35 weeks. Indications Operative indications ( section): previous uterine surgery History of Present care: good care, initiated at week # (7), number of visits (12) and pounds weight gain (32) Dating criteria: LMP confirmed by 1st trimester US Ultrasounds: normal 1st trimester US and normal mid trimester US Obstetrical complications: gestational diabetes Medical complications: none Preadmission Labs Blood type: A (+) positive -: Antibody screen: negative, GBS status: positive, HBsAG: negative, HIV: negative and RPR/VDLR: negative -: Rubella: immune and Varicella: immune HCT: 38.2 HCAB: negative PAP: Normal Quad screen: Normal Urine: Negative 1 hr GTT: 152 3 hr GTT: 1 hr (192), 2 hr (167) and 3 hr (118) Fasting blood glucose: 86 Prior (ies) History: 07/25/19 40.6 weeks, primary for FTP, 9 lb 15 oz male, [facility], Dr. Still// [facility] Evaluation Evaluation Baseline heart rate: 140 Variability: Moderate (11-25) monitor accelerations: Present monitor decelerations: Absent Category of Tracing: Reactive [facility] Medical History Abnormal Pap smear of cervix Anxiety and depression ASCUS (atypical squamous cells of undetermined significance) on gynecologic Papanicolaou smear complicating , antepartum (~07/26/18) Chicken pox (~1993) Chronic back pain (~2007) GDM, class A2 Hemorrhoid (~1999) History of recurrent ear infection (~1989) Irritable bowel syndrome (~2009) Recurrent sinusitis (~1997) Seasonal allergies Tinnitus (~2017) UTI (urinary tract infection) Surgical History Anesthesia Status post (~07/25/19) Family History Father Hypertension Hyperlipidemia Mother Hyperlipidemia Grandfather Leg length discrepancy Extra finger Grandmother Cancer History of heart disease Status post cardiac surgery Breast cancer Grandfather History of heart disease Stroke Grandmother Skin cancer Colon cancer Family/Other Stroke Family/Other History of open heart surgery Family/Other Lupus (systemic lupus erythematosus) Social History marital status: household members: significant other and children 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[employer]) Smoking Status: Never smoker second hand exposure: No alcohol intake: former (pre-) substance use type: does not use Meds Home Medications and Allergies Home Medications Medication Instructions Recorded Confirmed Type prenat.vits,edgard,rcg-iilb-yhfll 1 tab PO DAILY 01/26/19 01/24/21 History Blood glucose meter kit including #1 ea NS 11/01/20 Rx strips and lancets, as provided by insurance true metrix lancets #120 ea 11/30/20 Rx true metrix test strips #120 ea 11/30/20 Rx metformin 1,000 mg tablet 1,000 mg PO BID #60 tab 12/20/20 01/24/21 Rx Allergies Allergy/AdvReac Type Severity Reaction Status Date / Time Penicillins [PENICILLINS] Allergy Unknown Verified 01/24/21 06:21 MELONS Allergy Mild Uncoded 01/24/21 06:21 LAVENDAR Allergy Unknown Uncoded 01/24/21 06:21 Exam Vital Signs (past 8 hours): Temperature 36.0? blood pressure 124/59 rate 92 Const General: healthy appearing and comfortable HENRI Head: normal to inspection Ears: hearing grossly normal bilaterally Nose: external nose normal Face and sinus: normal facial exam Mouth: oral mucosae normal Eyes General: appearance normal, both eyes and all related structures Neck Neck: normal visual inspection Resp Effort & Inspection: normal respiratory effort Auscultation: clear to auscultation bilaterally Cardio Rate: regular rate Rhythm: regular rhythm Heart Sounds: no murmurs GI Other: Gravid Back/Spine/Pelvis Back: normal to inspection Skin General: no rashes or lesions noted Extrem General: normal to inspection and no pedal edema Objective Labs Result Diagrams: 01/24/21 06:20 Assessment and Plan Assessment and Plan Assessment and Plan narrative: 30 year old at 39 weeks and 3 days gestation here for repeat . complicated by GDM A2 on metformin with good control. Risks and benefits of repeat reviewed with patient and including risk of bleeding, infection or injury to surrounding organs (bladder, bowel, ureters). All questions answered. Patient would receive a blood transfusion if needed. Plan Repeat Ancef 2 g prior to surgery COVId negative
[2021-01-24] MEDS: LACTATED RINGERS 1,000 ML 1000 ML IV ×3 (07:07→08:35)
[2021-01-24 07:18] LABS: COVID19 -Nasal RAPID Negative (Negative)
--- NOTE | 2021-01-24 07:33 | PM.PREOP ---
Pre-operative Note COVID-19 COVID-19 status: Negative Result date/Date tested (Pos, Neg/Pending): 01/24/21 Interval Note History & Physical reviewed/Exam performed by Physician: Yes Changes to H&P: No
[2021-01-24] MEDS: CEFAZOLIN 2 GM/100 ML FROZ.PIGGY IV (07:45)
--- NOTE | 2021-01-24 08:30 | SUR.OPER ---
viable baby boy born at 0822, placenta delivered at 0825, 8/9, cord blood and placenta given to OB RN
[2021-01-24 09:13] VITALS: BP 115/52; PULSE 60; RESP 14; TEMP 36; O2SAT 98
--- NOTE | 2021-01-24 09:17 | PM.OP.1 ---
Operative Date/Time/Diagnoses Date of procedure: 01/24/21 Time of procedure: 08:15 Pre-op diagnosis: Prior section 39 weeks of GDM A2 Post-op diagnosis: same Procedure & Clinicians Procedure: Repeat low transverse section Same procedure as scheduled: Yes Indications: Prior 39 weeks of GDM A2 Surgeon: Sapna Still Monument Stonecutter: Yvonne Coley Click Yes if Unassisted: No Anesthesia Type: Spinal Operative Notes Findings: Vigorous male Normal uterus, tubes and ovaries Closure Type: primary Specimen(s): none sent Applied: catheter Estimated Blood Loss (mL): 1,750 Blood products transfused: none Procedure in detail: The patient was taken to the operating room where she was placed in the seated position. Spinal anesthesia was administered. She was then placed in the dorsal supine position with a leftward tilt. SCDs applied. She was prepped and draped in the usual sterile fashion. A timeout was performed. After spinal analgesia was found to be adequate, a Pfannenstiel skin incision was made 2 fingerbreadths above the pubic symphysis over the previous scar and carried through to the underlying layer fascia. The fascia was nicked in the midline and the incision extended bilaterally with Reynaga scissors, Dr. Still doing the left side and Dr. Coley doing the right side. The superior aspect of the fascial incision was grasped with a Dilma clamps, elevated, and the underlying rectus muscles dissected off sharply and bluntly. Attention was then turned to the inferior aspect of this incision which in a similar fashion was grasped with a Dilma clamps, elevated, and the underlying rectus muscles dissected off sharply and bluntly. The rectus muscles were in the midline. The peritoneum was entered and dissected bluntly laterally by Dr. Still and Dr. Coley. After entering the peritoneum there was good visualization of the bladder. The bladder blade was inserted. The vesicouterine peritoneum was identified, grasped with the pickup, and entered sharply with the Metzenbaum scissors. This incision was extended bilaterally, and the bladder flap was created digitally. The bladder blade was reinserted. The lower uterine segment was incised in a transverse fashion with the scalpel. Upon entering the amniotic sac there was a large amount clear amniotic fluid. The infant's head was delivered. The remainder of the body delivered without difficulty. The cord was double clamped and cut. The infant was handed off to waiting RN and RT. The placenta was delivered with gentle traction. The uterus was cleared of all clots and debris. The uterine incision was repaired with #1 chromic in a running interlocking fashion and a second layer the same suture was used for an imbricating layer. Hemostasis was achieved. The tubes and ovaries were examined and were found to be normal. The gutters were cleared of all clots and debris. The peritoneum was closed using 2-0 Vicryl in a running fashion. The fascia was reapproximated using 0 Vicryl in a running fashion. Subcutaneous layer was copiously irrigated with warm normal saline. 3 simple interrupted sutures of 3-0 Vicryl were placed to reapproximate the subcutaneous layer. The skin was closed with 4-0 undyed Vicryl in a subcuticular fashion. Steri-Strips were placed. An Aquacel dressing was placed. The uterus was expressed of a small amount of old blood. Sponge, lap, and instrument counts were correct. The patient tolerated the procedure well, and was taken to PACU in stable condition. Dr. Coley was present and essential throughout the case. She assisted with cautery, retraction and closure. Complications: none Post-operative Condition: stable
[2021-01-24 09:18] VITALS: BP 105/53; PULSE 64; RESP 14; O2SAT 98
[2021-01-24 09:23] VITALS: BP 123/61; PULSE 69; RESP 13; O2SAT 97
[2021-01-24 09:28] VITALS: BP 126/58; PULSE 64; RESP 17; O2SAT 99
[2021-01-24 09:38] VITALS: BP 109/57; PULSE 67; RESP 20; TEMP 36; O2SAT 99
--- NOTE | 2021-01-24 09:54 | SUR.PHASEI ---
Report to RADHA Pederson in L&D. Pt wanting to see her baby and is stable, VSS, sitting up in bed drinking gingerale and talking. Denies pain or nausea, dressing D&I, peripad with scant vag discharge. Pt transferred back to L&D by ARDHA Maxwell and RADHA Betancourt
[2021-01-24] MEDS: LACTATED RINGERS 1,000 ML 100 ML IV ×2 (12:15→19:41)
[2021-01-24 16:37] VITALS: TEMP 36.9
[2021-01-24] MEDS: KETOROLAC 30 MG/ML VIAL IV ×2 (16:37→22:32)
[2021-01-24] MEDS: diphenhydrAMINE 50 MG/ML VIAL 25 MG IV (22:31)
[2021-01-25] MEDS: KETOROLAC 30 MG/ML VIAL IV ×2 (04:37→11:09)
[2021-01-25 06:29] LABS: Hematocrit 29.3 % (36-46); Hemoglobin 9.7 g/dL (12.0-16.0)
--- NOTE | 2021-01-25 09:31 | P.PNOB_ITS ---
Subjective - OB Subjective Patient comments: no complaints, pain well controlled and tolerating diet baby status: doing well feeding status: breast and bottle feeding Date Patient Seen: 01/25/21 Time Patient Seen: 09:00 Interval history: Patient reports she is doing. has had some issues with blood sugars in the been giving formula. She did not breastfeed at all overn ight would like to try again today. She pumped and bottle fed her first baby for about 6 months. He required both and breast as he was a very big baby too. Pain is well controlled. Vaginal bleeding is moderate. She has been up out of bed. Tolerating a diet. Not yet passing gas. Exam Vital Signs (past 8 hours): Oxygen Delivery Method Room Air Temperature 98.5? blood pressure 114/65 heart rate 77 respirations 18 Narrative Exam Narrative: General: Awake and alert, no acute distress. HEENT: NCAT, EOMI, moist oral mucosa CV: Regular rate and rhythm, no murmurs, rubs or gallops Lungs: CTAB, no wheezes, rales, or rhonchi Abdomen: Aquacel dressing intact with minimal dried drainage. Soft, nontender; bowel tones active; uterus firm 1 cm below umbilicus Extremities: Warm, no edema bilaterally Objective Labs Result Diagrams: 01/25/21 06:20 Labs: Laboratory Results - last 24 hr 01/25/21 06:20 Hgb 9.7 L Hct 29.3 L Assessment & Plan Assessment and Plan (1) Status post : Status: Acute (2) GDM, class A2: Status: Acute (3) 39 weeks gestation of : Status: Acute Plan day: 1 plan OB: routine care and routine postop care Comments: Doing well after repeat . Appreciate support. Anticipate discharge home tomorrow. Time Spent With Patient Time: Total time spent is greater than 50% in coordination of care (as documented) at patient's floor/unit and/or counseling patient: Time with patient: less than 15 minutes
[2021-01-25] MEDS: PRENATAL VIT,CALC/IRON/FOLIC 1 TABLET 1 TAB PO (10:49)
[2021-01-25] MEDS: ACETAMINOPHEN 325 MG TABLET 650 MG PO ×3 (10:50→23:21)
[2021-01-25] MEDS: DOCUSATE 250 MG CAPSULE PO (10:54)
[2021-01-25] MEDS: IBUPROFEN 600 MG TABLET PO ×2 (17:39→23:21)
[2021-01-25] MEDS: OXYCODONE IR 5 MG TABLET PO (19:06)
[2021-01-26] MEDS: IBUPROFEN 600 MG TABLET PO (05:50)
[2021-01-26] MEDS: ACETAMINOPHEN 325 MG TABLET 650 MG PO (05:50)
[2021-01-26] MEDS: OXYCODONE IR 5 MG TABLET PO (07:49)
[2021-01-26] MEDS: DOCUSATE 250 MG CAPSULE PO (07:52)
[2021-01-26] MEDS: PRENATAL VIT,CALC/IRON/FOLIC 1 TABLET 1 TAB PO (07:52)
--- NOTE | 2021-01-26 07:57 | P.DS_ITS ---
Discharge Providers Provider Date of admission: 01/24/21 06:05 Discharge Date: 01/26/21 Primary care physician: KATINA Jensen Consults: 01/24/21 10:35 Consult to Marine Service Operator Routine Comment: Discharge provider: Sapna Still DO Summary Hospital Course Date Patient Seen: 01/26/21 Time Patient Seen: 08:02 Hospital Course: Patient is a 30-year-old G2 now P2 after repeat section on 01/24/21 at 39 weeks and 3 days gestation. She gave to a vigorous 4808 g male. course was uncomplicated. She was eating, ambulating, voiding and passing flatus. Pain controlled with ibuprofen, Tylenol and minimal oxycodone. Vaginal bleeding was decreasing at the time of discharge. She did have some difficulty with breast-feeding and infant had issues with low blood sugars. Blood sugars improved with formula supplementation. Patient wishes to breast-feed but bottle fed her first infant due to latch and supply issues. She was seen by and encouraged to pump as well as use SNS. At the time of discharge, infant was primarily formula fed. Patient wants to pumps more when she returns home. Recommended she offer the breast first then give formula if he still seems hungry. Recommended she pump several times a day to encourage her milk supply to come in. She expressed her understanding. She pumped the first 6 months of her for first son's life. She will follow-up in clinic next week for Aquacel dressing removal. Encouraged her to call for fevers, severe pain or bleeding through more than a pad an hour. Peripartum Data Delivery Method: Section complications: none [place] 1: Gender: Male Disposition of : home Discharge Diagnosis (1) Status post : Status: Acute (2) GDM, class A2: Status: Acute (3) 39 weeks gestation of : Status: Acute Status at Discharge Cognitive/behavioral status at discharge: at baseline, oriented Functional status at discharge: independent ambulation Overall status at discharge: patient is progressing back to baseline Time Spent with Patient Time attestation: Total time spent providing and/or coordinating discharge services: Time spent: Less than 30 minutes Objective Labs Result Diagrams: 01/25/21 06:20 Exam Vital Signs (past 8 hours): Oxygen Delivery Method Room Air Temperature 97.9? blood pressure over 61 rate 58 respirations 18 Narrative Exam Narrative: General: Awake and alert, no acute distress. HEENT: NCAT, EOMI, moist oral mucosa CV: Regular rate and rhythm, no murmurs, rubs or gallops Lungs: CTAB, no wheezes, rales, or rhonchi Abdomen: Aquacel dressing intact without drainage. Soft, nontender; bowel tones active; uterus firm 1 cm below umbilicus. Extremities: Warm, no edema bilaterally Discharge Plan Discharge Plan Patient Disposition: Home Discharge orders & Medications Prescriptions: New ibuprofen 600 mg Tablet 600 mg PO Q6HR PRN (Reason: Fever/Mild Pain (1-3)) Qty: 30 RF: 0 docusate sodium 250 mg Capsule 250 mg PO DAILY Qty: 30 RF: 0 oxycodone 5 mg Tablet 5 mg PO Q4HR PRN (Reason: Pain, Moderate (4-6)) Qty: 20 RF: 0 Continued prenat.vits,edgard,mpw-gene-qoogl tablet 1 tab PO DAILY RF: 0 Discontinued metformin 1,000 mg tablet 1,000 mg PO BID Qty: 60 RF: 2 (DME) Blood glucose meter kit including strips and lancets, as provided by insurance See Rx Instructions .Route .MEDSUPPLY Qty: 1 RF: 0 (DME) true metrix test strips See Rx Instructions .Route .MEDSUPPLY Qty: 120 RF: 5 (DME) true metrix lancets See Rx Instructions .Route .MEDSUPPLY Qty: 120 RF: 5 Follow up/Referrals: Janet Jacobs ARNP [Primary Care Provider] - Sapna Still DO [Physician] - 01/30/21 12:30 pm (Aquacel removal) Visit Report/Discharge Packet Visit Report Forms: Patient Portal/API, Stroke Signs & Symptoms Discharge Data Primary Care Provider: Janet Jacobs
[2021-01-26 08:45] VITALS: BP 109/57; PULSE 67; RESP 20; TEMP 36.9
== END 2021-01-26 10:46 | disposition home or self-care (01) | DRG 788 ==
PROVIDERS: Admitting Provider Family Medicine; PCP Nurse Practitioner Family; Referring Provider Family Medicine; Visit Provider Family Medicine
PROC: 10D00Z1 Extraction of Products of Conception, Low, Open Approach (ICD-10-PCS; CPT 59514; principal; 2021-01-24 07:45)
DX: O34.219 Maternal care for unspecified type scar from previous cesarean delivery (principal); O24.425 Gestational diabetes mellitus in childbirth, controlled by oral hypoglycemic drugs; Z3A.39 39 weeks gestation of pregnancy; Z37.0 Single live birth; Z20.822 Contact with and (suspected) exposure to COVID-19
CPT/HCPCS: 36415; 59050; 59510; 59514; 85014; 85018; 85025; 86850; 86900; 86901; 87635; C9803; J0690; J1200; J1885; J2274; J2405; J2590; J2765

== ENCOUNTER → 2021-06-02 07:19 | Outpatient (CLI) | payer OTHER, SELFPAY ==
[2021-06-02 08:40] LABS: Hemoglobin A1C% w Est Avg Glu 5.5 % (4.0-6.0)
== END ==
PROVIDERS: PCP Nurse Practitioner Family; Referring Provider Family Medicine; Visit Provider Family Medicine
DX: O24.419 Gestational diabetes mellitus in pregnancy, unspecified control (principal)
CPT/HCPCS: 36415; 83036

== ENCOUNTER → 2021-06-30 14:11 | Outpatient (CLI) | payer OTHER, SELFPAY ==
--- NOTE | 2021-06-30 14:16 | DI.US.S_ITS ---
PROCEDURE: US THYROID INDICATIONS: THYROTOXICOSIS TECHNIQUE: Real-time scanning was performed of the thyroid gland, with image documentation. COMPARISON: None. FINDINGS: Right: Thyroid lobe measures 5.9 x 1.6 x 2.4 cm, and is diffusely heterogeneous in echotexture. Color flow Doppler demonstrating mild vascularity. Left: Thyroid lobe measures 6.4 x 1.8 x 2.4 cm, and is diffusely heterogeneous in echotexture. Color-flow Doppler demonstrating mild vascularity. Morphologically normal appearing prominent left neck lymph node measuring 9 mm in maximal short axis. Isthmus: 7.3 mm thick. IMPRESSION: 1. Diffusely heterogeneous thyroid and no focal nodule seen. 2. Prominent morphologically normal appearing left neck lymph node. Recommend clinical correlation and management. Dictated by: Jhon CHO Interpreted: Sheldon Rodriguez MD on 06/30/2021 at 15:14 Transcribed by: LENA on 06/30/2021 at 15:17 Approved by: Sheldon Rodriguez M.D. on 06/30/2021 at 16:06
== END ==
PROVIDERS: PCP Nurse Practitioner Family; Referring Provider Nurse Practitioner Family; Visit Provider Nurse Practitioner Family
DX: E05.90 Thyrotoxicosis, unspecified without thyrotoxic crisis or storm (principal)
CPT/HCPCS: 76536

== ENCOUNTER → 2021-12-18 15:17 | Outpatient (CLI) | payer OTHER, SELFPAY ==
[2021-12-18 16:10] LABS: Influenza A - CEPHEID Flu A NEGATIVE (NEGATIVE); Influenza B - CEPHEID Flu B NEGATIVE (NEGATIVE)
[2021-12-18 16:17] LABS: COVID-19 CEPHEID PCR (VTM/NP) Negative (Negative)
== END ==
PROVIDERS: PCP Nurse Practitioner Family; Visit Provider Nurse Practitioner Family
DX: Z20.822 Contact with and (suspected) exposure to COVID-19 (principal); H92.09 Otalgia, unspecified ear
CPT/HCPCS: 0240U

== ENCOUNTER → 2022-03-12 07:46 | Outpatient (CLI) | payer OTHER, SELFPAY ==
[2022-03-12 09:14] LABS: Influenza A - CEPHEID Flu A NEGATIVE (NEGATIVE); Influenza B - CEPHEID Flu B NEGATIVE (NEGATIVE)
[2022-03-12 09:16] LABS: COVID-19 CEPHEID PCR (VTM/NP) Negative (Negative)
== END ==
PROVIDERS: PCP Nurse Practitioner Family; Visit Provider Nurse Practitioner Family
DX: R50.9 Fever, unspecified (principal)
CPT/HCPCS: 0240U

== ENCOUNTER → 2022-12-24 07:44 | Outpatient (CLI) | payer OTHER, MEDICAID, SELFPAY | PROVIDERS: PCP Nurse Practitioner Family; Visit Provider Nurse Practitioner Family | DX: J02.9 Acute pharyngitis, unspecified (principal) | CPT/HCPCS: 87880 ==

== ENCOUNTER → 2023-05-10 16:29 | Outpatient (CLI) | payer OTHER, MEDICAID, SELFPAY | PROVIDERS: PCP Nurse Practitioner Family; Visit Provider Physician Assistant | DX: R30.0 Dysuria (principal); N89.8 Other specified noninflammatory disorders of vagina | CPT/HCPCS: 81002; 87086; 87210 ==

== ENCOUNTER 2024-04-11 14:10 | Emergency (ER) | payer OTHER, SELFPAY ==
[2024-04-11] VITALS (10 sets, daily range): BP systolic 107–128; BP diastolic 53–79; PULSE 66–83; RESP 18–21; TEMP 36.7; O2SAT 85–99; BMI 35.5
--- NOTE | 2024-04-11 14:30 | DI.CT.S_ITS ---
PROCEDURE: CT STROKE INDICATIONS: word finding TECHNIQUE: Noncontrast 4.5 mm thick angled axial sections acquired from the foramen magnum to the vertex, with coronal reformats. For radiation dose reduction, the following was used: automated exposure control, adjustment of mA and/or kV according to patient size. COMPARISON: [facility], CT, CT ANGIO HEAD AND NECK, 04/11/2024, 14:38. FINDINGS: Image quality: Diagnostic. CSF spaces: Basal cisterns are patent. No extra-axial fluid collections. Ventricles are normal in size and shape. Brain: No midline shift. No intracranial masses or hemorrhage. Gutierrez-white matter interface is normal. Skull and face: Calvarium and visualized facial bones are intact, without suspicious lesions. Sinuses: Visualized sinuses and mastoids are clear. IMPRESSION: No acute intracranial pathology. This study fulfills neurological imaging criteria for inclusion or exclusion of acute stroke therapies based on available published neurological imaging guidelines. Dictated by: Shun Pritchard M.D. on 04/11/2024 at 13:53 Approved by: Shun Pritchard M.D. on 04/11/2024 at 13:55
--- NOTE | 2024-04-11 14:32 | DI.CT.S_ITS ---
PROCEDURE: CT ANGIO HEAD AND NECK INDICATIONS: word trouble TECHNIQUE: After the administration of intravenous contrast, 1 mm thick sections acquired from the aortic arch through the [place] of [place]. 3-dimensional pgyvsyy-ekyzbhdkk-mvlqllybju (MIP) and/or volume rendering reformats were acquired of the central intracranial vasculature and neck separately. For radiation dose reduction, the following was used: automated exposure control, adjustment of mA and/or kV according to patient size. COMPARISON: None. FINDINGS: Image quality: Diagnostic. BRAIN: CSF spaces: Ventricles are normal in size and shape. Basal cisterns are patent. No extra-axial fluid collections. Brain: No significant abnormality of the brain can be seen. Skull and face: Calvarium and facial bones appear intact, without suspicious lesions. Orbits appear normal. Sinuses: Sinuses and mastoids are clear. HEAD CT ANGIOGRAPHY: Anterior circulation: Intracranial internal carotid arteries are normal in size and flow. The flow within the paired anterior cerebral arteries is normal and symmetric. The flow within the middle cerebral arteries is normal and symmetric. The anterior communicating artery is seen. No aneurysms are seen. Posterior circulation: Visualized portions of the vertebral arteries demonstrate normal caliber, and join to form a normal appearing basilar artery. Flow within the posterior cerebral arteries is normal and symmetric. No aneurysms are seen. Right persistent origin, a normal variant. NECK CT ANGIOGRAPHY: Carotid system: The great vessels demonstrate a conventional anatomy as they arise from the aortic arch. The origins of the common carotid arteries appear patent. The common carotid arteries demonstrate normal caliber and courses. The bifurcation regions are both widely patent. The internal carotid arteries demonstrate normal calibers and courses. Posterior circulation: The origins of the vertebral arteries both appear widely patent. The more superior extracranial portions of both vertebral arteries also demonstrate normal courses and calibers. They join to form a normal appearing basilar artery. Soft tissues: Bilateral cervical lymphadenopathy, nonspecific. Bones: No suspicious bony lesions. Visualized cervical spine appears normally aligned. IMPRESSION: No significant intracranial arterial abnormality is seen. No significant abnormality is seen within the arteries of the neck. Nonspecific bilateral cervical lymphadenopathy, likely reactive. Any quantitative measurements of stenosis were performed using NASCET criteria. Dictated by: Shun Pritchard M.D. on 04/11/2024 at 13:56 Approved by: Shun Pritchard M.D. on 04/11/2024 at 13:59
[2024-04-11 14:44] LABS: Add Manual Diff / Slide Review NO; Basophils Absolute Auto 0 /uL (0-100); Basophils Percent Auto 0.3 % (0-2); Eosinophils Absolute Auto 100 /uL (0-450); Eosinophils Percent Auto 1.3 % (2-4); Hematocrit 40.1 % (36-46); Hemoglobin 13.6 g/dL (12.0-16.0); Lymphocytes Absolute Auto 2200 /uL (1100-4500); Lymphocytes Percent Auto 21.8 % (25-40); Mean Corpuscular Hemoglobin 30.9 PG (26-34); Mean Corpuscular Volume 90.8 fL (80-100); Monocytes Absolute Auto 1200 /uL (0-900); Monocytes Percent Auto 11.6 % (3-14); Neutrophils Absolute Auto 6600 /uL (1500-7000); Platelet Count 264 X10^3/uL (150-400); Red Blood Cell Count 4.41 X10^6/uL (4.0-5.2); Red Cell Distribution Width 12.4 % (11.6-14.8); White Blood Cell Count 10.2 X10^3/uL (4.5-11.0)
[2024-04-11 14:51] LABS: Prothrombin Time 11.5 SECONDS (9.4-12.5)
[2024-04-11 14:54] LABS: PTT Partial Thromboplastin Tim 31 SECONDS (25.1-36.5)
[2024-04-11 14:56] LABS: Alanine Aminotransferase 28 IU/L (<35); Albumin 4.7 g/dL (3.5-5.0); Albumin Globulin Ratio 1.4 (1.0-2.8); Alkaline Phosphatase 90 U/L (38-126); Aspartate Aminotransferase 26 IU/L (14-36); BUN Creatinine Ratio 19.2 (6-22); Bilirubin Total 0.7 mg/dL (0.2-1.3); Blood Urea Nitrogen 15 mg/dL (7-17); Calcium 9.5 mg/dL (8.4-10.2); Carbon Dioxide 26 mmol/L (22-32); Chloride 107 mmol/L (98-107); Creatine Kinase 155 U/L (30-135); Estimated Glomerular Filt Rate > 60 mL/min (>60); Ethanol (ETOH) < 10 mg/dL; Globulin 3.4 g/dL (1.7-4.1); Glucose 101 mg/dL (70-100); HEMOLYSIS < 15 (0-50); Potassium 4.1 mmol/L (3.4-5.1); Sodium 140 mmol/L (137-145); Total Protein 8.1 g/dL (6.3-8.2)
[2024-04-11 14:59] LABS: COVID19 -Nasal RAPID Negative (Negative)
[2024-04-11 15:07] LABS: Troponin I < 0.012 ng/mL (0.01-0.034)
[2024-04-11 15:14] LABS: Pregnancy Test Serum,Qual Negative (Negative)
--- NOTE | 2024-04-11 15:20 | PC.NURSE ---
Pt ambulated to the bathroom with steady gait. Pt reports slow progression back to her baseline. Pt reports she feels like she is able to answer questions more appropriately and quicker without difficulty. Pt reports her vision is back to her baseline. Pt denies feeling lightheaded or dizzy. Does continue to c/o of slight BROWN.
[2024-04-11 15:24] LABS: Appearance Urine UA CLEAR; Bilirubin Urine UA NEGATIVE (NEGATIVE); Color Urine UA YELLOW; Glucose Urine UA NEGATIVE (Negative); Ketones Urine UA NEGATIVE (NEGATIVE); Leukocyte Esterase Urine UA NEGATIVE (NEGATIVE); Nitrite Urine UA NEGATIVE (Negative); Occult Blood Urine UA NEGATIVE (Negative); Protein Urine UA NEGATIVE (Negative); Urobilinogen Urine UA 0.2 E.U./dL (0.2); pH Urine UA 7.5 (4.5-8.0)
[2024-04-11 15:28] LABS: UR Morphine/Opiate cutoff 300 Negative (Negative); Ur Creatinine Normal (Normal); Ur Specific Gravity Normal (Normal); Urine Amphetamines Negative (Negative); Urine Barbiturates Negative (Negative); Urine Benzodiazepines Negative (Negative); Urine Cocaine Negative (Negative); Urine MDMA Negative (Negative); Urine Methadone Negative (Negative); Urine Methamphetamines Negative (Negative); Urine Oxycodone Negative (Negative); Urine Phencyclidine Negative (Negative); Urine Tetrahydrocannabinol Negative (Negative); Urine Tricyclic Antidepressant Negative (Negative); Urine pH Normal (Normal)
[2024-04-11 15:32] LABS: Bacteria Urine None Seen; Culture Indicated Urine Cult Not Indicated; RBC Urine None Seen (0-5/HPF); Squamous Epithelial Cell Urine None Seen (0-5/HPF); Urine Volume 10mL (spun); WBC Urine None Seen (0-5/HPF)
[2024-04-11 15:38] LABS: Prolactin 11.9 ng/mL (3.0-18.6)
--- NOTE | 2024-04-11 16:24 | ED_ITS ---
HPI - Neuro Symptoms/Deficit General Chief Complaint: Neuro Symptoms/Deficit Stated Complaint: hard time waking up dizziness Time Seen by Provider: 04/11/24 14:30 Source: patient Mode of arrival: Ambulatory History of Present Illness HPI Narrative: Patient is a 33-year-old female presenting today as a code stroke with aphasia. Last known well about 1 hour prior to arrival at 1:30 a.m.. Has been states that he was getting ready they were going out for a family outing he was in the shower he heard and children wrestling and playing about 15 minutes later he went down and had a hard time waking her up. He thought that was abnormal. When she was arousable she had a very hard time finding the right word very unusual had some blurry vision as well. No facial droop or obvious unilateral weakness. Having some blurry vision more out of the left eye than the right but she denies any loss of vision. No history of seizure. Children are ages 3 and 4 in the 4-year-old is autistic so they are extremely poor historians. However patient states that she thinks the 4-year-old autistic 60 lb child gave her a very tight hug and squeeze around her neck and that is the last thing she remembers. This is never happened to her before. There is no loss of urine no foaming at the mouth has been can recall. She was able to ambulate and come here by POV. Symptoms seem to be improving. No known history of CVA in family. On Anticoagulants: No Related Data Home Medications Medication Instructions Recorded Confirmed levothyroxine 50 mcg tablet 50 mcg PO DAILY Thyroid 11/14/23 12/23/23 tameka PO PRN 12/23/23 cetirizine 10 mg tablet (Zyrtec) 10 mg PO DAILY PRN 12/23/23 12/23/23 fluticasone propionate 50 1 spray intranasal DAILY 12/23/23 12/23/23 mcg/actuation nasal spray,suspension (Allergy Relief (fluticasone)) Previous Rx's Medication Instructions Recorded levonorgestrel 21 mcg/24 hours (8 1 device intrauterine ONCE #1 ea 04/14/21 yrs) 52 mg intrauterine device (Mirena) clotrimazole 1 % topical cream 1 applic topical TID #15 grams 12/23/23 Allergies Allergy/AdvReac Type Severity Reaction Status Date / Time Penicillins [PENICILLINS] Allergy Unknown Verified 04/11/24 14:29 MELONS Allergy Mild Uncoded 12/23/23 10:36 LAVENDAR Allergy Unknown Uncoded 12/23/23 10:36 Review of Systems Hematologic/Lymphatic On Anticoagulants: No Patient History Medical History History of gestational diabetes UTI (urinary tract infection) ASCUS (atypical squamous cells of undetermined significance) on gynecologic Papanicolaou smear complicating , antepartum (~07/26/18) Chronic back pain (~2007) Chicken pox (~1993) Tinnitus (~2017) Recurrent sinusitis (~1997) History of recurrent ear infection (~1989) Irritable bowel syndrome (~2009) Hemorrhoid (~1999) Seasonal allergies Anxiety and depression Abnormal Pap smear of cervix Surgical History Anesthesia Status post (~07/25/19) Family History Father Hypertension Hyperlipidemia Mother Hyperlipidemia Grandfather Leg length discrepancy Extra finger Grandmother Cancer History of heart disease Status post cardiac surgery Breast cancer Grandfather History of heart disease Stroke Grandmother Skin cancer Colon cancer Family/Other Stroke Family/Other History of open heart surgery Family/Other Lupus (systemic lupus erythematosus) Social History marital status: household members: significant other and children occupational status: employed Smoking Status: Never smoker second hand exposure: No alcohol intake: former substance use type: does not use Smoking Status: Never smoker alcohol intake frequency: 0-2 drinks per day Substance Use Type: does not use Exam Initial Vital Signs Initial Vital Signs: Vital Signs Temperature 98.1 F 04/11/24 14:23 Pulse Rate 66 04/11/24 14:23 Respiratory Rate 18 04/11/24 14:23 Blood Pressure 128/75 04/11/24 14:23 Pulse Oximetry 98 04/11/24 14:23 Oxygen Delivery Method Room Air 04/11/24 14:23 GENERAL: Well-appearing 33-year-old female and in no acute distress. HEENT: Head atraumatic,EOMI, pupils reactive, face symmetric, moist mucous membranes CARDIOVASCULAR: Regular rate and rhythm without murmurs, rubs or gallops. RESPIRATORY: Breath sounds equal bilaterally, no wheezes rales or rhonchi. ABDOMEN: Soft, nontender. Normoactive bowel sounds all 4 quadrants. No guarding or rebound. EXTREMITIES: Normal range of motion, no clubbing or edema. Neurovascularly intact NEUROLOGICAL: Alert and oriented x4.Normal gait and speech. Cranial nerves II through XII grossly intact. Good zliteo-qj-cqow, good vluw-zi-ibjg, strength equal bilaterally, no dysarthria or aphasia, sensation in tact to soft touch bilaterally, no visual changes, no facial droop SKIN: Warm, dry, no laceration, no petechiae, no rashes or lesions. Scores ABCD2 Age >= 60 years: no Initial BP. Either SBP >= 140 or DBP >= 90.: no Clinical features of the TIA: speech disturbance without weakness Duration of symptoms: 10-59 minutes History of diabetes: no ABCD2 Score: 2 NIH Stroke Scale Level of Conciousness: Alert, keenly responsive Ask month/age: Answers both questions correctly. Open/close eyes, close hand: Performs both tasks correctly Best gaze horizontal: Normal Visual fitzgerald: No visual loss Facial palsy: Normal symetrical movement Left arm drift: No drift for full 10 sec Right arm drift: No drift for full 10 sec Left leg drift: No drift for full 5 sec Right leg drift: No drift for full 5 sec Limb ataxia: Absent Sensory on face/arms/legs: Normal, no sensory loss Best language: Mild to moderate, slurs some words Dysarthria: Normal Extinction or inattention: No abnormality Total NIH Stroke scale score: 1 Course Orders Ordered: ED Orders 04/11/24 14:30 CT Stroke Stat EKG-12 Lead Stat 04/11/24 14:32 CT angio head and neck Stat 04/11/24 14:35 COVID19 -Nasal RAPID Stat Complete Blood Count AUTO DIFF Stat Comprehensive Metabolic Panel Stat Ethanol (ETOH) Stat PTT Partial Thromboplastin Juan Stat Test Serum,Qual Stat Prolactin Stat Prothrombin Time INR Stat Troponin & CK Cardiac Panel Stat 04/11/24 15:16 Urinalysis and Microscopic Stat Urine Drug Screen, Rapid Stat Vital Signs Vital signs: Vital Signs - 8 hr 04/11/24 14:23 04/11/24 14:47 04/11/24 14:48 Temperature 98.1 F Pulse Rate 66 Respiratory Rate 18 Blood Pressure 128/75 123/79 Pulse Oximetry 98 85 L Oxygen Delivery Method Room Air 04/11/24 14:48 04/11/24 15:00 04/11/24 15:00 Temperature Pulse Rate 77 67 Respiratory Rate 18 Blood Pressure 107/53 L Pulse Oximetry 99 99 Oxygen Delivery Method 04/11/24 15:18 04/11/24 15:18 04/11/24 15:30 Temperature Pulse Rate 66 Respiratory Rate Blood Pressure 128/65 121/53 L Pulse Oximetry 99 Oxygen Delivery Method 04/11/24 15:30 04/11/24 16:00 04/11/24 16:00 Temperature Pulse Rate 73 71 Respiratory Rate 21 19 Blood Pressure 115/58 L Pulse Oximetry 98 98 Oxygen Delivery Method 04/11/24 16:30 04/11/24 16:31 04/11/24 16:31 Temperature Pulse Rate 77 79 Respiratory Rate Blood Pressure 111/56 L Pulse Oximetry 97 97 Oxygen Delivery Method 04/11/24 17:00 04/11/24 17:00 Temperature Pulse Rate 83 Respiratory Rate 18 Blood Pressure 107/66 Pulse Oximetry 98 Oxygen Delivery Method MDM - Neuro Symptoms/Deficit Lab Data 04/11/24 14:35 04/11/24 14:35 Labs: Lab Results 04/11/24 04/11/24 04/11/24 Range/Units 14:35 15:16 15:16 WBC 10.2 (4.5-11.0) X10^3/uL RBC 4.41 (4.0-5.2) X10^6/uL Hgb 13.6 (12.0-16.0) g/dL Hct 40.1 (36-46) % MCV 90.8 (80-100) fL MCH 30.9 (26-34) PG MCHC 34.0 (30-36) % RDW 12.4 (11.6-14.8) % Plt Count 264 (150-400) X10^3/uL Neut % (Auto) 65.0 (50-75) % Lymph % (Auto) 21.8 L (25-40) % [place] % (Auto) 11.6 (3-14) % Eos % (Auto) 1.3 L (2-4) % Baso % (Auto) 0.3 (0-2) % Neut # (Auto) 6600 (5404-6368) /uL Lymph # (Auto) 2200 (1714-6066) /uL [place] # (Auto) 1200 H (0-900) /uL Eos # (Auto) 100 (0-450) /uL Baso # (Auto) 0 (0-100) /uL PT 11.5 (9.4-12.5) SECONDS INR 1.0 (0.9-1.3) APTT 31 (25.1-36.5) SECONDS Sodium 140 (137-145) mmol/L Potassium 4.1 (3.4-5.1) mmol/L Chloride 107 (98-107) mmol/L Carbon Dioxide 26 (22-32) mmol/L BUN 15 (7-17) mg/dL Creatinine 0.78 (0.52-1.04) mg/dL Estimated GFR > 60 (>60) mL/min BUN/Creatinine Ratio 19.2 (6-22) Glucose 101 H (70-100) mg/dL Calcium 9.5 (8.4-10.2) mg/dL Total Bilirubin 0.7 (0.2-1.3) mg/dL AST 26 (14-36) IU/L ALT 28 (<35) IU/L Alkaline Phosphatase 90 (38-126) U/L Total Creatine Kinase 155 H (30-135) U/L Troponin I < 0.012 (0.01-0.034) ng/mL Total Protein 8.1 (6.3-8.2) g/dL Albumin 4.7 (3.5-5.0) g/dL Globulin 3.4 (1.7-4.1) g/dL Albumin/Globulin Ratio 1.4 (1.0-2.8) Prolactin 11.9 (3.0-18.6) ng/mL Serum , Qual Negative (Negative) Urine Color Yellow Urine Appearance Clear Urine pH 7.5 Normal (4.5-8.0) Ur Specific [place] 1.010 (1.000-1.035) Urine Protein Negative (Negative) Urine Glucose (UA) Negative (Negative) g/dL Urine Ketones Negative (NEGATIVE) Urine Occult Blood Negative (Negative) Urine Nitrate Negative (Negative) Urine Bilirubin Negative (NEGATIVE) Urine Urobilinogen 0.2 (0.2) E.U./dL Ur Leukocyte Esterase Negative (NEGATIVE) Urine RBC None seen (0-5/HPF) Urine WBC None seen (0-5/HPF) Ur Squamous Epith Cells None seen (0-5/HPF) Urine Bacteria None seen (None) Ur Culture Indicated? Cult not indicated Vol Urine Centrifuged 10ml (spun) U Opiates 300ng/mL cut Negative (Negative) Ur Oxycodone Screen Negative (Negative) Urine Methadone Screen Negative (Negative) Ur Barbiturates Screen Negative (Negative) U Tricyclic Antidepress Negative (Negative) Ur Phencyclidine Scrn Negative (Negative) Ur Amphetamines Screen Negative (Negative) U Methamphetamines Scrn Negative (Negative) Ur MDMA Scrn (Ecstasy) Negative (Negative) U Benzodiazepines Scrn Negative (Negative) Urine Cocaine Screen Negative (Negative) U Marijuana (THC) Screen Negative (Negative) Urine Specific [place] Normal (Normal) Ethyl Alcohol < 10 ( - 10) mg/dL Ur Creatinine Normal (Normal) SARS-CoV-2 (PCR) Negative (Negative) Point of Care Testing Glucose POC [address] scan - head: Radiologist's Impression: PROCEDURE: CT STROKE INDICATIONS: word finding TECHNIQUE: Noncontrast 4.5 mm thick angled axial sections acquired from the foramen magnum to the vertex, with coronal reformats. For radiation dose reduction, the following was used: automated exposure control, adjustment of mA and/or kV according to patient size. COMPARISON: [facility], CT, CT ANGIO HEAD AND NECK, 04/11/2024, 14:38. FINDINGS: Image quality: Diagnostic. CSF spaces: Basal cisterns are patent. No extra-axial fluid collections. Ventricles are normal in size and shape. Brain: No midline shift. No intracranial masses or hemorrhage. Gutierrez-white matter interface is normal. Skull and face: Calvarium and visualized facial bones are intact, without suspicious lesions. Sinuses: Visualized sinuses and mastoids are clear. IMPRESSION: No acute intracranial pathology. This study fulfills neurological imaging criteria for inclusion or exclusion of acute stroke therapies based on available published neurological imaging guidelines. Dictated by: Shun Pritchard M.D. on 04/11/2024 at 13:53 CTA - brain/neck: Radiologist's Impression: PROCEDURE: CT ANGIO HEAD AND NECK INDICATIONS: word trouble TECHNIQUE: After the administration of intravenous contrast, 1 mm thick sections acquired from the aortic arch through the [place]. 3-dimensional qfgmbou-obyntiscf-dhgaprtjpi (MIP) and/or volume rendering reformats were acquired of the central intracranial vasculature and neck separately. For radiation dose reduction, the following was used: automated exposure control, adjustment of mA and/or kV according to patient size. COMPARISON: None. FINDINGS: Image quality: Diagnostic. BRAIN: CSF spaces: Ventricles are normal in size and shape. Basal cisterns are patent. No extra-axial fluid collections. Brain: No significant abnormality of the brain can be seen. Skull and face: Calvarium and facial bones appear intact, without suspicious lesions. Orbits appear normal. Sinuses: Sinuses and mastoids are clear. HEAD CT ANGIOGRAPHY: Anterior circulation: Intracranial internal carotid arteries are normal in size and flow. The flow within the paired anterior cerebral arteries is normal and symmetric. The flow within the middle cerebral arteries is normal and symmetric. The anterior communicating artery is seen. No aneurysms are seen. Posterior circulation: Visualized portions of the vertebral arteries demonstrate normal caliber, and join to form a normal appearing basilar artery. Flow within the posterior cerebral arteries is normal and symmetric. No aneurysms are seen. Right persistent origin, a normal variant. NECK CT ANGIOGRAPHY: Carotid system: The great vessels demonstrate a conventional anatomy as they arise from the aortic arch. The origins of the common carotid arteries appear patent. The common carotid arteries demonstrate normal caliber and courses. The bifurcation regions are both widely patent. The internal carotid arteries demonstrate normal calibers and courses. Posterior circulation: The origins of the vertebral arteries both appear widely patent. The more superior extracranial portions of both vertebral arteries also demonstrate normal courses and calibers. They join to form a normal appearing basilar artery. Soft tissues: Bilateral cervical lymphadenopathy, nonspecific. Bones: No suspicious bony lesions. Visualized cervical spine appears normally aligned. IMPRESSION: No significant intracranial arterial abnormality is seen. No significant abnormality is seen within the arteries of the neck. Nonspecific bilateral cervical lymphadenopathy, likely reactive. Any quantitative measurements of stenosis were performed using NASCET criteria. Dictated by: Shun Pritchard M.D. on 04/11/2024 at 13:56 ECG Data Attestation: I personally reviewed and interpreted this ECG as follows: Prior ECG tracings: not available for review Interpretation: Normal sinus rhythm rate 62 ND interval 162 QRS [address] changes or ischemic changes. MDM Narrative Medical decision making narrative: Patient presents today with difficulty speaking that lasted less than 1 hour. Is unclear exactly what happened. She was playing with her child and then became difficult to arouse and very confused. She would some blurry vision but no hemianopsia or unilateral weakness or facial weakness. He overall she overall appears improved in going back to baseline. Blood work has been reviewed overall reassuring CT head and neck angio no acute intracranial hemorrhage or large vessel occlusion Possible seizure although prolactin is negative she had no urinary incontinence. Although maybe was postictal. She was wrestling playing with her child she reports that she vaguely remembers him something about neck possibly he hugged her too tight although I think unlikely. Possible fainting episode Overall she has been off and walking to the restroom she has a low ABCD2 score. No real risk factors. At this time I do recommend outpatient follow-up. We talked about possible outpatient MRI. Discharge Plan Departure Patient Disposition: Home Clinical Impression: Episode of syncope Instructions: DI for Syncope in Adults (Fainting), DI for Transient Ischemic Attack Activity Restrictions/Additional Instructions: *You have been diagnosed with fainting *What to do: At this time it is unclear exactly what happened today. However at this time I feel like you can go home and have follow-up with your primary care provider you may require an outpatient MRI. However if you should have any sort of recurrent some symptoms call 911 and come to emergency department immediately *Continue to take medications as directed *Follow up with your primary care provider in 2-3 days or call [phone] *Return to ER if you should have confusion difficulty speaking numbness tingling weakness facial droop or any new, worsening or concerning symptoms Prescriptions: No Action levothyroxine 50 mcg tablet 50 mcg PO DAILY Patient Comments: Started Sep 2023 Mirena 20 mcg/24 hours (6 yrs) 52 mg intrauterine device 1 device intrauterine ONCE Qty: 1 0RF fluticasone propionate [Allergy Relief (fluticasone)] 50 mcg/actuation spray,suspension 1 spray intranasal DAILY Rx Instructions: administer into each nostril cetirizine [Zyrtec] 10 mg tablet 10 mg PO DAILY PRN tameka PO PRN clotrimazole 1 % cream 1 applic topical TID Qty: 15 0RF Referrals: Yane Lux MD [Primary Care Provider] - Stand Alone Forms: Patient Portal/API
== END 2024-04-11 17:05 | disposition home or self-care (01) ==
PROVIDERS: Emergency Provider Emergency Medicine; PCP Student in an Organized Health Care Education/Training Program
DX: R55 Syncope and collapse (principal); R29.701 NIHSS score 1; Z20.822 Contact with and (suspected) exposure to COVID-19
CPT/HCPCS: 36415; 70450; 70496; 70498; 80053; 80305; 80320; 81001; 82550; 82962; 84146; 84484; 84703; 85025; 85610; 85730; 87635; 93005; 99284; 99285; Q9967

== ENCOUNTER → 2024-10-30 12:06 | Outpatient (CLI) | payer OTHER, SELFPAY ==
--- NOTE | 2024-10-30 12:07 | DI.RAD.S_ITS ---
PROCEDURE: XR CHEST 2V INDICATIONS: cough x 2 weeks, fatigue TECHNIQUE: 2 views of the chest were acquired. COMPARISON: None. FINDINGS: Surgical changes and devices: None. Lungs and pleura: Right mid/lower lung opacity. No pleural effusions or pneumothorax. Mediastinum: Mediastinal contours are normal. Heart size is normal. Bones and chest wall: No suspicious bony abnormalities. Soft tissues appear unremarkable. IMPRESSION: Right mid/lower lung opacity, consistent with pneumonia in the right middle lobe. Dictated by: Kem Foss M.D. on 10/30/2024 at 12:43 Approved by: Kem Foss M.D. on 10/30/2024 at 12:52
== END ==
LOC: RAD 12:07
PROVIDERS: PCP Student in an Organized Health Care Education/Training Program; Referring Provider Student in an Organized Health Care Education/Training Program; Visit Provider Student in an Organized Health Care Education/Training Program
DX: R05.9 Cough, unspecified (principal)
CPT/HCPCS: 71046

== ENCOUNTER → 2025-01-14 07:36 | Outpatient (CLI) | payer OTHER, SELFPAY ==
--- NOTE | 2025-01-14 07:37 | DI.NM.S_ITS ---
PROCEDURE: NM EXERCISE TREADMILL NON NUC COMPARISON: None. INDICATIONS: SYNCOPE AND COLLAPSE FINDINGS: Patient exercised per the standard Jose protocol. Total exercise time was 8 minutes and 11 seconds. Test was terminated secondary to fatigue. Maximal heart rate obtained is 166 bpm which is 90% of max impacted heart rate. Maximum blood pressure was 150/[place] [address]. [place] +13%. 10.1 METS. No ischemic changes noted. No arrhythmias present. No chest pains voiced. Normal heart rate and blood pressure response to exercise. IMPRESSION: 1. Negative exercise treadmill stress test for ischemia. 2. Below average exercise tolerance. Dictated by: Robert Rodrigues M.D. on 01/14/2025 at 16:37 Approved by: Robert Rodrigues M.D. on 01/14/2025 at 16:38
== END ==
PROVIDERS: PCP Student in an Organized Health Care Education/Training Program; Referring Provider Internal Medicine; Visit Provider Internal Medicine
DX: R55 Syncope and collapse (principal)
CPT/HCPCS: 93017

== ENCOUNTER → 2025-01-18 06:54 | Outpatient (CLI) | payer OTHER, SELFPAY ==
--- NOTE | 2025-01-18 06:55 | DI.ECHO.S_ITS ---
[facility] : : [id number] : : [place] : : [id number] : : Phone: [phone] Echocardiogram Report + + :Name: ASHIA ANN Study Date: 01/18/2025 Height: 66 in : :[facility] ReadingLocation: Weight: 215 lb : : Gender: Female BSA: 2.1 m2 : :: 1990 Age: 34 yrs BP: 116/80 mmHg: :Reason For Study: SYNCOPE : :Ordering Physician: JOAO RODRIGUES Performed By: Krystal Whyte : :Referring: JOAO RODRIGUES : + + Interpretation Summary 1. The left ventricular contractility is normal. Estimate ejection fraction is greater than 60% with no segmental wall motion abnormalities. No LVH. Unable to comment on diastolic function. 2. The right ventricular contractility is normal. 3. All cardiac chambers are of normal size. 4. Trace to mild mitral regurgitation. 5. Delayed bubbles noted in the left ventricle suggesting the presence of an intrapulmonary shunt. 6. No obvious intracardiac masses nor thrombi. 7. No hemodynamically significant pericardial effusion. 8. Low right-sided filling pressures. Conclusion: Normal biventricular systolic function with trace to mild mitral regurgitation and an intrapulmonary shunt. Procedure: A two-dimensional transthoracic echocardiogram with color flow and Doppler was performed. The study quality was technically adequate. There is no prior echocardiogram noted for this patient. A saline contrast injection was performed to assess for cardiac shunting. The injection was performed through an intravenous line in the left arm. The patient was in sinus bradycardia with heart rates between 50-60 bpm during the exam. Left Ventricle: The left ventricle is normal in size and wall thickness. The ejection fraction is estimated to be 60-65%. Diastolic function could not be accurately assessed due to unobtainable data. Right Ventricle: The right ventricle is normal in size and function. Atria: The left atrial size is normal. Right atrial size is normal. Mitral Valve: There is a flat closure plane of the the mitral valve leaflets. There is mild mitral regurgitation. Aortic Valve: The aortic valve is trileaflet. The aortic valve opens well. There is no aortic valve stenosis. No aortic regurgitation is present. Tricuspid Valve: The tricuspid valve leaflets are thin and pliable. There is trace tricuspid regurgitation. The right ventricular systolic pressure is estimated to be at least 24 mmHg based on an estimated right atrial pressure of 3 mm Hg. Pulmonic Valve: The pulmonic valve leaflets are thin and pliable; valve motion is normal. There is trace pulmonic regurgitation. Great Vessels: The aortic root is normal size. The dimensions of the ascending aorta are normal. The IVC is of normal diameter and collapses greater than 50% with a sniff. This suggests a low right atrial pressure of 3 mm Hg. Pericardium/ Pleura There is no pericardial effusion. There is no pleural effusion. MMode/2D Measurements & Calculations LVIDd: 5.6 cm LVOT diam: 2.0 cm LVIDs: 3.7 cm Ao root diam: 2.6 cm FS: 34.8 % asc Aorta Diam: 2.5 cm EPSS: 0.91 cm Ao Arch Diam (Prox Trans): 2.3 cm IVSd: 0.71 cm LVPWd: 0.64 cm LV munoz. diameter/BSA (cm/m^2): 2.7 LV sys. diameter/BSA (cm/m^2): 1.8 LA A2 area: 17.6 cm2 RA long axis: 4.2 cm LA A4 area: 16.4 cm2 RA area: 13.3 cm2 LA length (vol): 4.7 cm RA vol: 35.8 ml LA vol: 52.2 ml RA : 17.4 ml/m2 LA vol index: 25.3 ml/m2 IVC diam: 1.5 cm RVD1 (basal): 4.2 cm RVD2 (mid): 3.5 cm TAPSE: 1.7 cm Doppler Measurements & Calculations Ao V2 max: 146.0 cm/sec LVOT Max Maxwell: 97.4 cm/sec Ao V2 mean: 100.0 cm/sec LV V1 max P.8 mmHg Ao max P.5 mmHg LV V1 VTI: 21.0 cm Ao mean P.5 mmHg MARY(I,D): 2.1 cm2 Ao V2 VTI: 30.8 cm MARY(V,D): 2.1 cm2 sev ratio: 0.68 MARY indexed to BSA (cm^2/m^2): 1.0 MV E max maxwell: 110.6 cm/sec TR max maxwell: 226.3 cm/sec MV A max maxwell: 40.6 cm/sec TR max P.5 mmHg MV E/A: 2.7 PA V2 max: 111.2 cm/sec MV dec time: 0.16 sec PA V2 mean: 78.7 cm/sec PA mean P.8 mmHg PA pr(Accel): -5.8 mmHg Pulm Frida Revs Maxwell: 23.3 cm/sec SV(LVOT): 65.5 ml Pulm Frida Revs Dur: 0.09 sec Reading Physician:EVERETT
== END ==
PROVIDERS: PCP Student in an Organized Health Care Education/Training Program; Referring Provider Internal Medicine; Visit Provider Internal Medicine
DX: I34.0 Nonrheumatic mitral (valve) insufficiency (principal); R55 Syncope and collapse; R00.1 Bradycardia, unspecified
CPT/HCPCS: 93306

== ENCOUNTER → 2025-03-21 13:21 | Outpatient (CLI) | payer OTHER, SELFPAY | PROVIDERS: PCP Student in an Organized Health Care Education/Training Program; Visit Provider Physician Assistant Surgical | DX: J02.9 Acute pharyngitis, unspecified (principal) | CPT/HCPCS: 87070 ==

== ENCOUNTER → 2025-04-21 07:03 | Outpatient (CLI) | payer OTHER, SELFPAY ==
[2025-04-21 08:40] LABS: Free T3, Triiodothyronine Free 4.01 pg/mL (2.77-5.27); Free T4, Direct Thyroxine 1.07 ng/dL (0.78-2.19)
[2025-04-21 08:53] LABS: Thyroid Stimulating Hormone 3.78 uIU/mL (0.47-4.68)
[2025-04-22 07:36] LABS: Thyroid Peroxidase Antibodies 17 IU/mL (0-34)
[2025-04-22 17:36] LABS: Anti Thyroglobulin Antibody <1.0 IU/mL (0.0-0.9)
== END ==
LOC: LAB 07:04
PROVIDERS: PCP Student in an Organized Health Care Education/Training Program; Referring Provider Internal Medicine Endocrinology, Diabetes & Metabolism; Visit Provider Internal Medicine Endocrinology, Diabetes & Metabolism
DX: E03.9 Hypothyroidism, unspecified (principal)
CPT/HCPCS: 36415; 84439; 84443; 84481; 86376; 86800